=== PATIENT | male | born 1965 | race Caucasian/White ===

== ENCOUNTER 2017-01-27 19:23 | Emergency (ER) | payer BC ==
[2017-01-27 20:05] VITALS: BP 157/109
[2017-01-27] MEDS ORDERED: Ketorolac INJ* 60 MG/2 ML VIAL IM ONE (20:09)
[2017-01-27] MEDS ORDERED: cefTRIAXone VIAL(*) 1,000 MG VIAL IM ONE (20:46)
[2017-01-27] MEDS ORDERED: predniSONE TAB* 20 MG PO ONE (20:46)
[2017-01-27] MEDS ORDERED: Amoxicillin/Clavulanate TAB* 875 MG PO ONE (20:47)
[2017-01-27] MEDS ORDERED: HYDROcodone/ACETAMIN 5-325 MG* 1 TAB PO ONE (20:47)
--- NOTE | 2017-01-27 20:49 | UC ---
Dental HPI - HPI Summary HPI Summary: Patient has a hisotry of dental problems and poor teeth, his too broke off 3 days ago and now has a large abcess on the left upper gum. swollen upper and lower jaw lines, pain in the left ear, runnign down to neck, fever and headache. also complaining of SOB from a COPD exacerbation that he says started today - History of Current Complaint Chief Complaint: UCDentalProblem Stated Complaint: TOOTH PAIN Time Seen by Provider: 01/27/17 20:09 Hx Obtained From: Patient Onset/Duration: Sudden Onset, Lasting Days Severity: Severe Related History: Previous Dental Care on Same Tooth, Swelling - Allergies/Home Medications Allergies/Adverse Reactions: Allergies Allergy/AdvReac Type Severity Reaction Status Date / Time Penicillins Allergy Unknown Unknown Verified 10/20/16 14:40 Reaction Details PMH/Surg Hx/FS Hx/Imm Hx Previously Healthy: Yes Endocrine History Of: Denies: Diabetes, Thyroid Disease Cardiovascular History Of: Reports: Hypertension Denies: Cardiac Disorders, Pacemaker/ICD Respiratory History Of: Reports: COPD Denies: Asthma GI/ History Of: Reports: Ulcer - stomach as child - Surgical History Surgical History: Yes Surgery Procedure, Year, and Place: torn meniscus 97 right knee - Family History Known Family History: Positive: None, Hypertension - Social History Alcohol Use: Rare Substance Use Type: None Smoking Status (MU): Heavy Every Day Tobacco Smoker Type: Cigarettes Amount Used/How Often: 1ppd Length of Time of Smoking/Using Tobacco: 35 Have You Smoked in the Last Year: Yes Household Exposure Type: Cigarettes - Immunization History Most Recent Influenza Vaccination: 06/20/15 Most Recent Pneumonia Vaccination: 07/08/15 Vaccination Up to Date: Yes Review of Systems Constitutional: Fever, Chills, Fatigue Skin: Negative Eyes: Negative ENT: Dental Pain, Sore Throat, Ear Ache, Nasal Discharge Respiratory: Shortness Of Breath, Cough Gastrointestinal: Negative Genitourinary: Negative Motor: Negative Neurovascular: Negative Musculoskeletal: Negative Neurological: Headache Psychological: Negative All Other Systems Reviewed And Are Negative: Yes Physical Exam Triage Information Reviewed: Yes Appearance: Well-Nourished, Ill-Appearing, Pain Distress Vital Signs: Initial Vital Signs Temp 99.1 F 01/27/17 20:00 Pulse 91 01/27/17 20:00 Resp 18 01/27/17 20:00 BP 157/109 01/27/17 20:00 Pulse Ox 97 01/27/17 20:00 Vital Signs Reviewed: Yes Eye Exam: Normal Eyes: Positive: Conjunctiva Clear ENT: Positive: Pharyngeal erythema, Tonsillar swelling Dental: Positive: Percussion Tenderness @ - on upper and lower left jaw, Gross Decay/Caries @ - throught mouth, Dental Fracture @ - upper left remainng molar, Abscess @ - uper left molar, Cervical Lymphadenopathy - left and right Neck: Positive: Supple, Tenderness @ - along right side, Enlarged Nodes @ - bilateral cervical Respiratory Exam: Normal Respiratory: Positive: Chest non-tender, No respiratory distress, No accessory muscle use, Decreased breath sounds, Wheezing, Inspiration Cardiovascular Exam: Normal Cardiovascular: Positive: RRR Abdominal Exam: Normal Abdomen Description: Positive: Nontender, No Organomegaly, Soft Bowel Sounds: Positive: Present Musculoskeletal Exam: Normal Musculoskeletal: Positive: Strength Intact, ROM Intact, No Edema Neurological Exam: Normal Neurological: Positive: Alert, Muscle Tone Normal Psychological Exam: Normal Skin: Positive: Other - erythema on left side of face and ear Dental Complaint Course/Dx - Course Course Of Treatment: hx obtained, exam performed, meds reviewed, toradol given for pain, abx given and prescribed. pain meds prescribed prednisone given for COPD exacerbation. - Differential Dx/Diagnosis Differential Diagnosis/Dx: Dental Abscess, Dental Caries, Fractured Tooth, Pharyngitis Provider Diagnoses: dental abscess. fracture tooth. COPD exacerbation Discharge - Discharge Plan Condition: Stable Disposition: HOME Patient Education Materials: Dental Abscess (ED) Additional Instructions: 1. take the medication as prescribed. 2. Swish with coconut oil 5-6 times a day 3. Follow up with the dentist this coming week. 4. Return for follow up with worsening symptom.
[2017-01-27] MEDS ORDERED: Lidocaine 1% MPF* 2 ML VIAL ONE (21:04)
== END 2017-01-27 21:50 | disposition home or self-care (01) ==
LOC: UCEAST 19:23
DX: K04.7 Periapical abscess without sinus (principal); S02.5XXA Fracture of tooth (traumatic), initial encounter for closed fracture; I10 Essential (primary) hypertension; F17.210 Nicotine dependence, cigarettes, uncomplicated; J44.1 Chronic obstructive pulmonary disease with (acute) exacerbation; Z88.0 Allergy status to penicillin; X58.XXXA Exposure to other specified factors, initial encounter
CPT/HCPCS: 96372; 99213; A9270-GY; G0463; J0696; J1885; J7512

== ENCOUNTER 2017-02-14 14:05 | Emergency (ER) | payer BC ==
[2017-02-14 14:18] VITALS: BP 175/110
--- NOTE | 2017-02-14 18:28 | UC ---
marti Blackman Timothy, scribed for Constance Blair MD on 02/14/17 at 1434 . Shortness of Breath HPI - HPI Summary HPI Summary: Eldon Nance is a 51 yo male presenting to [facility] with cold symptoms 02/12/17 am with 2/10 CASTRO and nausea. He states his Sx have continued with increasing SOB. He is coughing up light green sputum, and states he had a subjective fever. 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 he also states that he was bit by a tick 2 weeks ago on his right leg. He is allergic to penicillin. He has a nebulizer at home for his COPD. His MHx includes COPD, stomach ulcer, EtOH abuse, tobacco use. - History of Current Complaint Chief Complaint: UCRespiratory Stated Complaint: SOB,COPD Time Seen by Provider: 02/14/17 14:19 Hx Obtained From: Patient Onset/Duration: Sudden Onset, Lasting Days, Still Present Timing: Constant Current Severity: Moderate Dyspnea At: Rest Aggrevating Factors: Nothing Alleviating Factors: Nothing Associated Signs & Symptoms: Positive: Cough (Productive) - light green, Wheezing, Fever, Other - CASTRO, nausea - Allergy/Home Medications Allergies/Adverse Reactions: Allergies Allergy/AdvReac Type Severity Reaction Status Date / Time Penicillins Allergy Unknown Unknown Verified 10/20/16 14:40 Reaction Details PMH/Surg Hx/FS Hx/Imm Hx Endocrine History Of: Denies: Diabetes, Thyroid Disease Cardiovascular History Of: Reports: Hypertension Denies: Cardiac Disorders, Pacemaker/ICD Respiratory History Of: Reports: COPD Denies: Asthma GI/ History Of: Reports: Ulcer - stomach as child - Surgical History Surgical History: Yes Surgery Procedure, Year, and Place: torn meniscus 97 right knee - Family History Known Family History: Positive: Hypertension - Social History Alcohol Use: Rare Alcohol Amount: former EtOH abuse Substance Use Type: None Smoking Status (MU): Heavy Every Day Tobacco Smoker Type: Cigarettes Amount Used/How Often: 1ppd Length of Time of Smoking/Using Tobacco: 35 Have You Smoked in the Last Year: Yes Household Exposure Type: Cigarettes - Immunization History Most Recent Influenza Vaccination: 06/20/15 Most Recent Pneumonia Vaccination: 07/08/15 Vaccination Up to Date: Yes Review of Systems Constitutional: Negative, Fever Skin: Other - 3cm erythematous region on anterior aspect of Pt's right thigh Eyes: Negative Respiratory: Shortness Of Breath, Cough Cardiovascular: Negative Gastrointestinal: Other - nausea Genitourinary: Negative Motor: Negative Neurovascular: Negative Musculoskeletal: Negative Neurological: Headache Psychological: Negative All Other Systems Reviewed And Are Negative: Yes Physical Exam Triage Information Reviewed: Yes Appearance: No Pain Distress, Well-Nourished, Ill-Appearing Vital Signs: Initial Vital Signs Temp 97.8 F 02/14/17 14:13 Pulse 96 02/14/17 14:13 Resp 22 02/14/17 14:13 BP 175/110 02/14/17 14:13 Pulse Ox 96 02/14/17 14:13 Vital Signs Reviewed: Yes Eyes: Positive: Conjunctiva Clear ENT: Positive: Hearing grossly normal. Negative: Muffled/hoarse voice Neck: Positive: Supple, Nontender Respiratory: Positive: Lungs clear, No respiratory distress, Decreased breath sounds - throughout, slightly worse on right side., Expiration - expiratory wheezes. Negative: Normal breath sounds Cardiovascular: Positive: RRR, No Murmur, Pulses Normal, Brisk Capillary Refill Musculoskeletal: Positive: Strength Intact, ROM Intact Neurological: Positive: Alert, Muscle Tone Normal Psychological Exam: Normal Skin: Positive: rashes - 3cm erythematous region on the right anterior thigh Shortness of Breath Dx - Course Course Of Treatment: Eldon Nance is a 51 yo male presenting to [facility] with cold symptoms, notably increasing SOB since 02/12/17. He also was bit by a tick 2 weeks ago an has a 3cm red area on his anterior right thigh, and will be tested for lyme disease. Pt is requesting a Rx for his nebulizer so he can do a breathing Tx at home. Of note is his BP of 175/110 upon arrival. After clinical examination, he will be discharged home with COPD exacerbation, bronchitis, and rash with possible lyme disease with appriopriate instructions. Due to his elevated BP, he will also be Dx with HTN in poor control. His pharmacy was called at 1450 to correct an incorrect Rx. - Differential Dx/Diagnosis Differential Diagnosis/HQI/PQRI: Asthma, Bronchitis, COPD Exacerbation, Pneumonia, Other - lyme disease Provider Diagnoses: hypertension in poor control, COPD exacerbation, bronchitis , rash with possible Lyme disease. Discharge - Discharge Plan Condition: Stable Disposition: HOME Prescriptions: DOXYcycline CAP(*) [DOXYcycline 100MG CAP(*)] 100 mg PO BID #42 cap Fluticasone HFA 220 mcg(NF) [Flovent HFA 220 Mcg(NF)] 1 puff INH BID #1 mdi predniSONE TAB* [Deltasone TAB*] 40 mg PO DAILY #10 tab Patient Education Materials: Chronic Hypertension (ED), Lyme Disease (ED), Tick Bite (ED), COPD (Chronic Obstructive Pulmonary Disease) (ED), Acute Bronchitis (ED) Forms: *Work Release Referrals: Rebecca Adame MD [Primary Care Provider] - 2 Days Additional Instructions: Please follow up with Dr. Adame regarding your visit to urgent care today. We have ordered a test for lyme disease, which we will contact you with the results of if positive. Return to urgent care with any new or recurring symptoms. The documentation as recorded by the marti villareal Timothy accurately reflects the service I personally performed and the decisions made by , Constance Blair MD.
== END 2017-02-14 15:17 | disposition home or self-care (01) ==
LOC: UCEAST 14:05
DX: J44.1 Chronic obstructive pulmonary disease with (acute) exacerbation (principal); J20.9 Acute bronchitis, unspecified; J44.0 Chronic obstructive pulmonary disease with (acute) lower respiratory infection; R21 Rash and other nonspecific skin eruption; I10 Essential (primary) hypertension; Z88.0 Allergy status to penicillin; F17.210 Nicotine dependence, cigarettes, uncomplicated
CPT/HCPCS: 86618; 99211; G0463

== ENCOUNTER 2017-06-28 17:24 | Emergency (ER) | payer SELFPAY ==
[2017-06-28 17:52] VITALS: BP 139/91
--- NOTE | 2017-06-28 18:39 | UC ---
Respiratory Complaint HPI - HPI Summary HPI Summary: 51 yo male with cough fever chills and wheezing x 3-4 days hx copd/bronchitis/pneumonia relief with rescue inhaler out of nebs medicine no cp SOB with wheezing at times - History of Current Complaint Chief Complaint: UCRespiratory Stated Complaint: SOB,COUGH Time Seen by Provider: 06/28/17 18:19 Hx Obtained From: Patient Onset/Duration: Gradual Onset, Lasting Days Timing: Constant Severity Initially: Mild Severity Currently: Moderate Pain Intensity: 2 Pain Scale Used: 0-10 Numeric Character: Cough: Productive Aggravating Factors: Exertion, Deep Breaths Alleviating Factors: Bronchodilator Associated Signs And Symptoms: Positive: Dyspnea - at times, Wheezing, Nasal Congestion, Sinus Discomfort Related History: Similar Episode/Dx as: - bronhitis - Allergies/Home Medications Allergies/Adverse Reactions: Allergies Allergy/AdvReac Type Severity Reaction Status Date / Time Penicillins Allergy Unknown Unknown Verified 06/28/17 17:44 Reaction Details PMH/Surg Hx/FS Hx/Imm Hx Previously Healthy: Yes Endocrine History: Dyslipidemia Cardiovascular History: Hypertension Respiratory History: COPD, Asthma, Bronchitis, Pneumonia - Surgical History Surgical History: Yes Surgery Procedure, Year, and Place: torn meniscus 97 right knee - Family History Known Family History: Positive: Hypertension - Social History Alcohol Use: Rare Alcohol Amount: former EtOH abuse Substance Use Type: None Smoking Status (MU): Heavy Every Day Tobacco Smoker Type: Cigarettes Amount Used/How Often: 1ppd Length of Time of Smoking/Using Tobacco: 1 ppd 35+ years Have You Smoked in the Last Year: Yes Household Exposure Type: Cigarettes - Immunization History Most Recent Influenza Vaccination: 06/20/15 Most Recent Pneumonia Vaccination: 07/08/15 Vaccination Up to Date: Yes Review of Systems Constitutional: Fever, Chills, Fatigue Skin: Negative Eyes: Negative ENT: Nasal Discharge, Sinus Congestion, Sinus Pain/Tenderness Respiratory: Shortness Of Breath - at times, Cough Cardiovascular: Negative Gastrointestinal: Negative Genitourinary: Negative Motor: Negative Neurovascular: Negative Musculoskeletal: Negative Neurological: Headache Psychological: Negative Is Patient Immunocompromised?: No All Other Systems Reviewed And Are Negative: Yes Physical Exam Triage Information Reviewed: Yes Appearance: Well-Appearing, No Pain Distress, Well-Nourished Vital Signs: Initial Vital Signs Temp 99.7 F 06/28/17 17:47 Pulse 73 09/07/17 17:47 Resp 16 06/28/17 17:47 BP 139/91 06/28/17 17:47 Pulse Ox 98 06/28/17 17:47 Vital Signs Reviewed: Yes Eyes: Positive: Conjunctiva Clear ENT: Positive: Hearing grossly normal, Nasal congestion, TMs normal. Negative: Nasal drainage, Tonsillar swelling, Tonsillar exudate, Trismus, Muffled/hoarse voice Dental: Negative: Abscess @ Neck: Positive: Supple, Nontender, No Lymphadenopathy Respiratory: Positive: No respiratory distress, No accessory muscle use, Wheezing Cardiovascular: Positive: RRR, No Murmur Musculoskeletal: Positive: ROM Intact, No Edema Neurological: Positive: Alert Psychological Exam: Normal Skin Exam: Normal UC Diagnostic Evaluation - Laboratory O2 Sat by Pulse Oximetry: 98 - normal/not hypoxic Respiratory Course/Dx - Course Course Of Treatment: pt refused CXR and neb treatment - Differential Dx/Diagnosis Provider Diagnoses: acute bronchitis with bronchospasm Discharge - Discharge Plan Condition: Stable Disposition: HOME Prescriptions: Albuterol 2.5MG/3ML (0.083%)* [Ventolin 2.5 MG/3 ML NEB.ESHA*] 2.5 mg INH QID PRN #1 neb.esha PRN Reason: Wheezing Azithromycin TAB* [Zithromax TAB (Z-KOSTAS) 250 mg #6 tabs] 250 mg PO DAILY #6 tab Prednisone [Deltasone] 40 mg PO DAILY #10 tab Patient Education Materials: Acute Bronchitis (ED) Forms: *Work Release Referrals: Rebecca Adame MD [Primary Care Provider] - 4 Days (if not better)
== END 2017-06-28 18:30 | disposition home or self-care (01) ==
LOC: UCEAST 17:24
DX: J44.9 Chronic obstructive pulmonary disease, unspecified (principal); J20.9 Acute bronchitis, unspecified; Z88.0 Allergy status to penicillin; E78.5 Hyperlipidemia, unspecified; I10 Essential (primary) hypertension; F17.210 Nicotine dependence, cigarettes, uncomplicated
CPT/HCPCS: 99211; G0463

== ENCOUNTER 2017-07-04 16:13 | Emergency (ER) | payer BC ==
--- NOTE | 2017-07-04 16:31 | UC ---
Throat Pain/Nasal Vinay HPI - HPI Summary HPI Summary: 51 YEAR OLD MALE PRESENTS FOR A DOCTORS NOTE AFTER BEING TREATED FOR COPD A FEW DAYS AGO. - History of Current Complaint Chief Complaint: UCRespiratory Stated Complaint: URI Time Seen by Provider: 07/04/17 16:31 Hx Obtained From: Patient Onset/Duration: Sudden Onset, Lasting Days Severity: Mild Pain Scale Used: 0-10 Numeric - 1 Cough: Nonproductive Associated Signs & Symptoms: Positive: Negative - Allergies/Home Medications Allergies/Adverse Reactions: Allergies Allergy/AdvReac Type Severity Reaction Status Date / Time Penicillins Allergy Unknown Unknown Verified 07/04/17 16:23 Reaction Details PMH/Surg Hx/FS Hx/Imm Hx Previously Healthy: Yes - Surgical History Surgical History: Yes Surgery Procedure, Year, and Place: torn meniscus 97 right knee - Family History Known Family History: Positive: None, Hypertension - Social History Alcohol Use: Rare Alcohol Amount: former EtOH abuse Substance Use Type: None Smoking Status (MU): Heavy Every Day Tobacco Smoker Type: Cigarettes Amount Used/How Often: 1ppd Length of Time of Smoking/Using Tobacco: 1 ppd 35+ years Have You Smoked in the Last Year: Yes Household Exposure Type: Cigarettes - Immunization History Most Recent Influenza Vaccination: 06/20/15 Most Recent Pneumonia Vaccination: 07/08/15 Vaccination Up to Date: Yes Review of Systems Constitutional: Negative Skin: Negative Eyes: Negative ENT: Negative Respiratory: Cough Cardiovascular: Negative Gastrointestinal: Negative Genitourinary: Negative Motor: Negative Neurovascular: Negative Musculoskeletal: Negative Neurological: Negative Psychological: Negative All Other Systems Reviewed And Are Negative: Yes Physical Exam Triage Information Reviewed: Yes Vital Signs: Initial Vital Signs Temp 36.8 C 07/04/17 16:23 Pulse 89 07/04/17 16:23 Resp 16 07/04/17 16:23 Pulse Ox 97 07/04/17 16:23 Vital Signs Reviewed: Yes Eye Exam: Normal ENT Exam: Normal Dental Exam: Normal Neck exam: Normal Neck: Positive: 1 Respiratory Exam: Normal Respiratory: Positive: Rhonchi, Wheezing Cardiovascular Exam: Normal Abdominal Exam: Normal Musculoskeletal Exam: Normal Neurological Exam: Normal Psychological Exam: Normal Skin Exam: Normal Throat Pain/Nasal Course/Dx - Differential Dx/Diagnosis Provider Diagnoses: COUGH Discharge - Discharge Plan Condition: Stable Disposition: HOME Patient Education Materials: Cold Symptoms (ED), Acute Cough (ED) Forms: *Work Release Referrals: Rebecca Adame MD [Primary Care Provider] -
== END 2017-07-04 16:40 | disposition home or self-care (01) ==
LOC: UCEAST 16:13
DX: R05 Cough (principal); J44.9 Chronic obstructive pulmonary disease, unspecified; Z88.0 Allergy status to penicillin; F17.210 Nicotine dependence, cigarettes, uncomplicated
CPT/HCPCS: 99211; G0463

== ENCOUNTER 2017-07-10 16:13 | Emergency (ER) | payer BC ==
--- NOTE | 2017-07-10 16:24 | UC ---
Respiratory Complaint HPI - HPI Summary HPI Summary: 51 YEAR OLD MALE PRESENTS WITH COUGH. - History of Current Complaint Stated Complaint: COUGH Time Seen by Provider: 07/10/17 16:24 Hx Obtained From: Patient Onset/Duration: Sudden Onset Severity Initially: Moderate Severity Currently: Moderate Pain Scale Used: 0-10 Numeric - 5 Character: Cough: Nonproductive Associated Signs And Symptoms: Positive: Negative - Allergies/Home Medications Allergies/Adverse Reactions: Allergies Allergy/AdvReac Type Severity Reaction Status Date / Time Penicillins Allergy Unknown Unknown Verified 07/04/17 16:23 Reaction Details PMH/Surg Hx/FS Hx/Imm Hx Previously Healthy: Yes - Surgical History Surgical History: Yes Surgery Procedure, Year, and Place: torn meniscus 97 right knee - Family History Known Family History: Positive: None, Hypertension - Social History Alcohol Use: Rare Alcohol Amount: former EtOH abuse Substance Use Type: None Smoking Status (MU): Heavy Every Day Tobacco Smoker Type: Cigarettes Amount Used/How Often: 1ppd Length of Time of Smoking/Using Tobacco: 1 ppd 35+ years Have You Smoked in the Last Year: Yes Household Exposure Type: Cigarettes - Immunization History Most Recent Influenza Vaccination: 06/20/15 Most Recent Pneumonia Vaccination: 07/08/15 Vaccination Up to Date: Yes Review of Systems Constitutional: Negative Skin: Negative Eyes: Negative ENT: Negative Respiratory: Cough Cardiovascular: Negative Gastrointestinal: Negative Genitourinary: Negative Motor: Negative Neurovascular: Negative Musculoskeletal: Negative Neurological: Negative Psychological: Negative All Other Systems Reviewed And Are Negative: Yes Physical Exam Triage Information Reviewed: Yes Vital Signs Reviewed: Yes Eye Exam: Normal ENT Exam: Normal Dental Exam: Normal Neck exam: Normal Neck: Positive: 1 Respiratory: Positive: Respiratory distress, Wheezing Cardiovascular Exam: Normal Abdominal Exam: Normal Musculoskeletal Exam: Normal Neurological Exam: Normal Psychological Exam: Normal Skin Exam: Normal Respiratory Course/Dx - Differential Dx/Diagnosis Provider Diagnoses: COUGH. POST NASAL DRIP Discharge - Discharge Plan Condition: Stable Disposition: HOME Prescriptions: Albuterol HFA INHALER* [Ventolin HFA Inhaler*] 1 puff INH Q6H PRN #1 box PRN Reason: Wheezing Albuterol/Ipratropium RESP(NF) [Combivent Respimat(NF)] 1 aer IN QID #1 box Amoxicillin/Clavulanate TAB* [Augmentin TAB 875*] 875 mg PO BID #20 tab predniSONE TAB* [Deltasone TAB*] 40 mg PO DAILY #10 tab Patient Education Materials: Asthma (ED), Acute Bronchitis (ED) Forms: *Work Release Referrals: Rebecca Adame MD [Primary Care Provider] -
[2017-07-10 16:29] VITALS: BP 122/83
== END 2017-07-10 16:47 | disposition home or self-care (01) ==
LOC: UCEAST 16:13
DX: R05 Cough (principal); F17.210 Nicotine dependence, cigarettes, uncomplicated; Z88.0 Allergy status to penicillin; R09.82 Postnasal drip
CPT/HCPCS: 99212; G0463

== ENCOUNTER 2017-09-27 15:16 | Emergency (ER) | payer BC ==
[2017-09-27 15:30] VITALS: BP 153/95
[2017-09-27] MEDS ORDERED: Albuterol 2.5 MG/3 ML NEB.SOL* (0.083%) INH ONE (15:39)
[2017-09-27] MEDS ORDERED: Ipratropium 0.5MG/2.5ML NEB* 0.5 MG/2.5 ML NEB.SOLN INH ONE (15:39)
[2017-09-27] MEDS ORDERED: predniSONE TAB* 20 MG PO ONE (15:39)
--- NOTE | 2017-09-27 15:39 | UC ---
Respiratory Complaint HPI - HPI Summary HPI Summary: 51 yo smoker with COPD presents with exacerbation of COPD which started yesterday CASTRO wheezing myalgias chills ?fever - History of Current Complaint Chief Complaint: UCRespiratory Stated Complaint: SOB Time Seen by Provider: 09/27/17 15:29 Hx Obtained From: Patient Onset/Duration: Gradual Onset, Lasting Hours Timing: Constant Severity Initially: Moderate Severity Currently: Moderate Pain Intensity: 4 Pain Scale Used: 0-10 Numeric Character: Cough: Nonproductive Aggravating Factors: Exertion, Deep Breaths, Recumbent Position Alleviating Factors: Bronchodilator Associated Signs And Symptoms: Positive: Chills, Wheezing, Nasal Congestion - Allergies/Home Medications Allergies/Adverse Reactions: Allergies Allergy/AdvReac Type Severity Reaction Status Date / Time Penicillins Allergy Unknown Unknown Verified 09/27/17 15:30 Reaction Details Home Medications: Home Medications Ibuprofen TAB* [Advil TAB*] 800 mg PO ONCE PRN 09/27/17 [History Confirmed 09/27] PMH/Surg Hx/FS Hx/Imm Hx Cardiovascular History: Hypertension Respiratory History: COPD, Bronchitis, Pneumonia, Other Other Respiratory History: [place] - Surgical History Surgical History: Yes Surgery Procedure, Year, and Place: torn meniscus 97 right knee - Family History Known Family History: Positive: None, Hypertension - Social History Alcohol Use: Rare Alcohol Amount: former EtOH abuse Substance Use Type: None Smoking Status (MU): Current Every Day Smoker Type: Cigarettes Amount Used/How Often: 1ppd Length of Time of Smoking/Using Tobacco: 1 ppd 35+ years Have You Smoked in the Last Year: Yes Household Exposure Type: Cigarettes - Immunization History Most Recent Influenza Vaccination: 06/20/15 Most Recent Pneumonia Vaccination: 07/08/15 Vaccination Up to Date: Yes Review of Systems Constitutional: Chills, Fatigue ENT: Nasal Discharge Respiratory: Cough Musculoskeletal: Myalgia Neurological: Headache Is Patient Immunocompromised?: No All Other Systems Reviewed And Are Negative: Yes Physical Exam Triage Information Reviewed: Yes Appearance: Well-Appearing, No Pain Distress, Well-Nourished Vital Signs: Initial Vital Signs Temp 98.1 F 09/27/17 15:24 Pulse 70 09/27/17 15:24 Resp 20 09/27/17 15:24 BP 153/95 09/27/17 15:24 Pulse Ox 95 09/27/17 15:24 Eyes: Positive: Conjunctiva Clear ENT: Positive: Hearing grossly normal, Nasal congestion, TMs normal, Uvula midline. Negative: Nasal drainage, Tonsillar swelling, Tonsillar exudate, Trismus, Muffled voice, Hoarse voice, Dental tenderness, Sinus tenderness Neck exam: Normal Neck: Positive: Supple, Nontender Respiratory: Positive: No respiratory distress, No accessory muscle use, Wheezing Cardiovascular: Positive: RRR, No Murmur Musculoskeletal: Positive: ROM Intact, No Edema Neurological: Positive: Alert Psychological Exam: Normal Skin Exam: Normal UC Diagnostic Evaluation - Laboratory O2 Sat by Pulse Oximetry: 95 - normal/not hypoxic Diagnostic Studies Comment: rapid flu A and B both negative Re-Evaluation - Re-Evaluation First Eval Re-Evaluation Time: 16:30 Change: Improved Comment: LUNGS CLEAR Respiratory Course/Dx - Differential Dx/Diagnosis Provider Diagnoses: ACUTE EXCARBATION OF COPD. ACUTE BRONCHITIS. TOBACCO ABUSE Discharge - Discharge Plan Condition: Stable Disposition: HOME Prescriptions: Albuterol 2.5MG/3ML (0.083%)* [Ventolin 2.5 MG/3 ML NEB.ESHA*] 2.5 mg INH QID PRN #1 neb.esha PRN Reason: Wheezing Azithromycin TAB* [Zithromax TAB*] 250 mg PO DAILY #6 tab Prednisone [Deltasone] 40 mg PO DAILY #8 tab Patient Education Materials: Acute Bronchitis (ED) Forms: *Work Release Referrals: Rebecca Adame MD [Primary Care Provider] - 1 Week Additional Instructions: RETURN FOR NEW OR WORSENING SYMPTOMS\ YOU NEED TO STOP SMOKING
== END 2017-09-27 16:43 | disposition home or self-care (01) ==
LOC: UCEAST 15:16
DX: J44.1 Chronic obstructive pulmonary disease with (acute) exacerbation (principal); J20.9 Acute bronchitis, unspecified; J44.0 Chronic obstructive pulmonary disease with (acute) lower respiratory infection; I10 Essential (primary) hypertension; Z88.0 Allergy status to penicillin; F17.210 Nicotine dependence, cigarettes, uncomplicated
CPT/HCPCS: 87502; 99213; G0463; J7512; J7644

== ENCOUNTER 2017-10-25 12:38 | Emergency (ER) | payer BC ==
[2017-10-25] MEDS ORDERED: methylPREDNISolone 125 MG* 2 ML VIAL IV ONE (12:54)
[2017-10-25] MEDS ORDERED: Albuterol/Ipratropium NEB.SOL* Albuterol 2.5 MG/Ipratropium 0.5 MG 3 ML INH ONE (12:55)
[2017-10-25] MEDS ORDERED: Levofloxacin TAB* 250 MG PO ONE (12:56)
--- NOTE | 2017-10-25 13:25 | UC ---
Respiratory Complaint HPI - HPI Summary HPI Summary: 52 yo WM with extensive h/o smoking p/w acute sob and chest tightness. States his nebulizer machine broke at home could not get his tx. - History of Current Complaint Chief Complaint: UCChestPain Stated Complaint: SHORTNESS OF BREATH, TIGHT,HEADACHE Time Seen by Provider: 10/25/17 12:52 Onset/Duration: Sudden Onset Severity Initially: Moderate Severity Currently: Moderate Character: Cough: Nonproductive Aggravating Factors: Deep Breaths Associated Signs And Symptoms: Positive: Negative - Allergies/Home Medications Allergies/Adverse Reactions: Allergies Allergy/AdvReac Type Severity Reaction Status Date / Time Penicillins Allergy Unknown Unknown Verified 10/25/17 12:56 Reaction Details PMH/Surg Hx/FS Hx/Imm Hx Respiratory History: COPD - Surgical History Surgical History: Yes Surgery Procedure, Year, and Place: torn meniscus 97 right knee - Family History Known Family History: Positive: None, Hypertension - Social History Alcohol Use: Rare Alcohol Amount: former EtOH abuse Substance Use Type: None Smoking Status (MU): Current Every Day Smoker Type: Cigarettes Amount Used/How Often: 1ppd Length of Time of Smoking/Using Tobacco: 1 ppd 35+ years Have You Smoked in the Last Year: Yes Household Exposure Type: Cigarettes - Immunization History Most Recent Influenza Vaccination: none Most Recent Pneumonia Vaccination: 07/08/15 Vaccination Up to Date: Yes Review of Systems Constitutional: Negative Skin: Negative Eyes: Negative ENT: Negative Respiratory: Shortness Of Breath, Cough Cardiovascular: Negative Gastrointestinal: Negative Genitourinary: Negative Motor: Negative Neurovascular: Negative Musculoskeletal: Negative Neurological: Negative Psychological: Negative All Other Systems Reviewed And Are Negative: Yes Physical Exam Triage Information Reviewed: Yes Vital Signs: Initial Vital Signs Temp 37.2 C 10/25/17 12:47 Pulse 82 10/25/17 12:47 Resp 20 10/25/17 12:47 BP 184/115 10/25/17 12:47 Pulse Ox 97 10/25/17 12:47 Eye Exam: Normal ENT Exam: Normal Dental Exam: Normal Neck exam: Normal Neck: Positive: 1 Respiratory Exam: Normal Respiratory: Positive: Wheezing - expiratory>inspiratory Cardiovascular Exam: Normal Abdominal Exam: Normal Musculoskeletal Exam: Normal Neurological Exam: Normal Psychological Exam: Normal Skin Exam: Normal UC Diagnostic Evaluation - Laboratory O2 Sat by Pulse Oximetry: 97 Respiratory Course/Dx - Course Course Of Treatment: CXR mild patchiness in RLL in a COPD pt. WIll tx with Levaquin and Prednisone. Reordered nebulizer machine - Differential Dx/Diagnosis Provider Diagnoses: COPD exacerbation and PNA Discharge - Discharge Plan Condition: Stable Disposition: HOME Prescriptions: Levofloxacin TAB* [Levaquin TAB*] 500 mg PO DAILY 7 Days #7 tab Nebulizers [Nebulizer] 1 mis XX DAILY 30 Days #1 mis predniSONE TAB* [Deltasone TAB*] 30 mg PO DAILY 5 Days #5 tab Respiratory Therapy Supplies [Nebulizer/Adult Mask] 1 kit XX DAILY 30 Days #1 kit Patient Education Materials: COPD (Chronic Obstructive Pulmonary Disease) (ED) , Pneumonia (ED) Referrals: No Primary Care Phys,NOPCP [Primary Care Provider] - Additional Instructions: as tolerated
--- NOTE | 2017-10-25 13:40 | RAD ---
HISTORY: Shortness of breath COMPARISONS: September 11, 2015 VIEWS: 4: Frontal dual-energy and lateral views of the chest. FINDINGS: CARDIOMEDIASTINAL SILHOUETTE: The cardiomediastinal silhouette is normal. MIRTHA: The mirtha are normal. PLEURA: The costophrenic angles are sharp. No pleural abnormalities are noted. LUNG PARENCHYMA: The lungs are clear. ABDOMEN: The upper abdomen is clear. There is no subphrenic gas. BONES AND SOFT TISSUES: Mild degenerative changes are noted OTHER: None. IMPRESSION: NO ACTIVE CARDIOPULMONARY DISEASE.
[2017-10-25 14:26] VITALS: BP 153/106
== END 2017-10-25 15:25 | disposition home or self-care (01) ==
LOC: UCEAST 12:38
DX: J44.1 Chronic obstructive pulmonary disease with (acute) exacerbation (principal); J18.9 Pneumonia, unspecified organism; F17.210 Nicotine dependence, cigarettes, uncomplicated; Z88.0 Allergy status to penicillin
CPT/HCPCS: 71046; 93005; 96374; 99213; A9270-GY; G0463; J2930

== ENCOUNTER 2017-12-09 12:02 | Emergency (ER) | payer BC ==
[2017-12-09 12:53] VITALS: BP 153/104
--- NOTE | 2017-12-09 13:20 | UC ---
Respiratory Complaint HPI - HPI Summary HPI Summary: Pt presents with body aches, fatigue, and cough for the last 3 days. He is feeling the best today since his symptoms started, but still has a persistent cough. He tells me that he has a history of COPD and is on many inhalers, of which he has been out of for the last 5 days. He is asking for refill on all of his inhalers and her neurontin. Not taking anything OTC for his symptoms. He missed work and sunday and is asking for a note to return to work tomorrow. Denies fever, chills, SOB, chest pain, abdominal pain, n/v/d/c. He is still smoking - History of Current Complaint Chief Complaint: UCRespiratory Stated Complaint: COUGH Time Seen by Provider: 12/09/17 13:08 Hx Obtained From: Patient Onset/Duration: Gradual Onset Severity Initially: Mild Severity Currently: Mild Pain Intensity: 3 Pain Scale Used: 0-10 Numeric Character: Cough: Nonproductive - Allergies/Home Medications Allergies/Adverse Reactions: Allergies Allergy/AdvReac Type Severity Reaction Status Date / Time MS Penicillins [Penicillins] Allergy Unknown Unknown Verified 12/09/17 12:54 Reaction Details Penicillins Allergy Unknown Verified 12/09/17 12:54 Reaction Details PMH/Surg Hx/FS Hx/Imm Hx Endocrine History: Dyslipidemia Cardiovascular History: Hypertension Respiratory History: COPD - Surgical History Surgical History: Yes Surgery Procedure, Year, and Place: torn meniscus 97 right knee - Family History Known Family History: Positive: None, Hypertension - Social History Occupation: Employed Full-time Alcohol Use: Rare Alcohol Amount: former EtOH abuse Substance Use Type: None Smoking Status (MU): Heavy Every Day Tobacco Smoker Type: Cigarettes Amount Used/How Often: 1ppd Length of Time of Smoking/Using Tobacco: 1 ppd 35+ years Have You Smoked in the Last Year: Yes Household Exposure Type: Cigarettes - Immunization History Most Recent Influenza Vaccination: none Most Recent Pneumonia Vaccination: 07/08/15 Vaccination Up to Date: Yes Review of Systems Constitutional: Fatigue, Other - Body aches Skin: Negative Eyes: Negative ENT: Negative Respiratory: Cough Cardiovascular: Negative Gastrointestinal: Negative Genitourinary: Negative Musculoskeletal: Negative Neurological: Negative Psychological: Negative All Other Systems Reviewed And Are Negative: Yes Physical Exam Triage Information Reviewed: Yes Appearance: Well-Appearing, No Pain Distress, Well-Nourished Vital Signs: Initial Vital Signs Temp 98.6 F 12/09/17 12:49 Pulse 72 12/09/17 12:49 Resp 18 12/09/17 12:49 BP 153/104 12/09/17 12:49 Pulse Ox 97 12/09/17 12:49 Vital Signs Reviewed: Yes Eyes: Positive: Conjunctiva Clear. Negative: Conjunctiva Inflamed, Discharge ENT: Positive: Hearing grossly normal, Pharynx normal, TMs normal, Uvula midline. Negative: Pharyngeal erythema, Nasal congestion, Nasal drainage, TM bulging, TM dull, TM red, Tonsillar swelling, Tonsillar exudate, Hoarse voice, Sinus tenderness Neck: Positive: Supple, Nontender, No Lymphadenopathy Respiratory: Positive: No respiratory distress, No accessory muscle use, Decreased breath sounds, Wheezing - Moderate throughout. Negative: Crackles Cardiovascular: Positive: RRR, No Murmur, Pulses Normal Neurological: Positive: Fatigued Psychological: Positive: Age Appropriate Behavior Skin: Negative: rashes UC Diagnostic Evaluation - Laboratory O2 Sat by Pulse Oximetry: 97 Respiratory Course/Dx - Course Course Of Treatment: POC flu negative. CXR: IMPRESSION: NO EVIDENCE FOR ACTIVE CARDIOPULMONARY DISEASE. Refill of his usual inhalers and will start prednisone burst for 5 days. - Differential Dx/Diagnosis Provider Diagnoses: COPD exacerbation Discharge - Discharge Plan Condition: Stable Disposition: HOME Prescriptions: Albuterol 2.5MG/3ML (0.083%)* [Ventolin 2.5 MG/3 ML NEB.ESHA*] 2.5 mg INH QID PRN #1 neb.esha PRN Reason: Wheezing Albuterol HFA INHALER* [Ventolin HFA Inhaler*] 1 puff INH Q6H PRN #1 box PRN Reason: Wheezing Albuterol/Ipratropium RESP(NF) [Combivent Respimat (NF)] 1 aer IN QID #1 box Fluticasone HFA 220 mcg(NF) [Flovent Hfa 220 Mcg(NF)] 1 puff INH BID #1 mdi Fluticasone-Salmeterol 500-50* [Advair Diskus 500-50*] 1 puff INH BID #1 diskus predniSONE TAB* [Deltasone TAB*] 50 mg PO DAILY #5 tab Patient Education Materials: COPD (Chronic Obstructive Pulmonary Disease) (ED) Forms: *Gen. Provider Communication Referrals: No Primary Care Phys,NOPCP [Primary Care Provider] - Additional Instructions: If you develop a fever, shortness of breath, chest pain, new or worsening symptoms - please call your PCP or go to the ED. Your blood pressure was high at todays visit. Please see your primary provider within 4 weeks for recheck and re-evaluation.
--- NOTE | 2017-12-09 13:40 | RAD ---
INDICATION: Cough and COPD. COMPARISON: Correlation is made with prior studies from July 11, 2011 and October 25, 2017. TECHNIQUE: Dual-energy PA and lateral views of the chest were obtained. FINDINGS: The heart is within normal limits in size. Mediastinal and hilar contours appear within normal limits. The lungs are slightly hyperinflated and clear. No pleural effusion is seen. IMPRESSION: NO EVIDENCE FOR ACTIVE CARDIOPULMONARY DISEASE.
== END 2017-12-09 13:54 | disposition home or self-care (01) ==
LOC: UCEAST 12:02
DX: J44.1 Chronic obstructive pulmonary disease with (acute) exacerbation (principal); F17.210 Nicotine dependence, cigarettes, uncomplicated; E78.5 Hyperlipidemia, unspecified; I10 Essential (primary) hypertension; Z88.0 Allergy status to penicillin
CPT/HCPCS: 71046; 87502; 99212; G0463

== ENCOUNTER 2018-03-11 11:52 | Emergency (ER) | payer BC ==
[2018-03-11 12:10] VITALS: BP 154/101
--- NOTE | 2018-03-11 12:15 | UC ---
Respiratory Complaint HPI - HPI Summary HPI Summary: 52 yo male presents with cough and chest congestion for 5 days. He has a history of COPD and is on multiple inhalers and uses a nebulizer. Over the weekend he says he had a fever of 101F. Has been using his inhalers more often. Productive cough with green sputum. Has not been taking anything OTC. Denies chest pain. - History of Current Complaint Chief Complaint: UCRespiratory Stated Complaint: COUGH,CONGESTED Time Seen by Provider: 03/11/18 12:14 Hx Obtained From: Patient Severity Currently: None Pain Intensity: 0 Character: Cough: Productive Alleviating Factors: Bronchodilator - Allergies/Home Medications Allergies/Adverse Reactions: Allergies Allergy/AdvReac Type Severity Reaction Status Date / Time Penicillins Allergy Unknown Verified 03/11/18 12:10 Reaction Details PMH/Surg Hx/FS Hx/Imm Hx Cardiovascular History: Hypertension Respiratory History: COPD GI/ History: Gastroesophageal Reflux - Surgical History Surgical History: Yes Surgery Procedure, Year, and Place: torn meniscus 97 right knee - Family History Known Family History: Positive: None, Hypertension - Social History Occupation: Employed Full-time Lives: With Family Alcohol Use: Rare Alcohol Amount: former EtOH abuse Substance Use Type: None Smoking Status (MU): Heavy Every Day Tobacco Smoker Type: Cigarettes Amount Used/How Often: 1ppd Length of Time of Smoking/Using Tobacco: 1 ppd 35+ years Have You Smoked in the Last Year: Yes Household Exposure Type: Cigarettes - Immunization History Most Recent Influenza Vaccination: none Most Recent Pneumonia Vaccination: 07/08/15 Vaccination Up to Date: Yes Review of Systems Constitutional: Fever Skin: Negative Eyes: Negative ENT: Negative Respiratory: Shortness Of Breath, Cough Cardiovascular: Negative Gastrointestinal: Negative Neurovascular: Negative Neurological: Negative Psychological: Negative All Other Systems Reviewed And Are Negative: Yes Physical Exam - Summary Physical Exam Summary: GENERAL: NAD. WDWN. No pain distress. SKIN: No rashes, sores, lesions, or open wounds. HEENT: Head: AT/NC Eyes: Conjunctiva clear without inflammation or discharge. Ears: Hearing grossly normal. TMs intact, no bulging, erythema, or edema. Nose: Nasal mucosa pink and moist. NTTP maxillary and frontal sinus. Throat: Posterior oropharynx without exudates, erythema, or tonsillar enlargement. Uvula midline. NECK: Supple. Nontender. No lymphadenopathy. CHEST: Moderate wheezing throughout. No r/r. No accessory muscle use. Breathing comfortably and in no distress. CV: RRR. Without m/r/g. Pulses intact. Brisk cap refill. NEURO: Alert. CN II-XII grossly intact. PSYCH: Age appropriate behavior. Triage Information Reviewed: Yes Vital Signs: Initial Vital Signs Temp 99.6 F 03/11/18 12:05 Pulse 91 03/11/18 12:05 Resp 18 03/11/18 12:05 BP 154/101 03/11/18 12:05 Pulse Ox 96 03/11/18 12:05 Diagnostic Evaluation - Laboratory O2 Sat by Pulse Oximetry: 96 Respiratory Course/Dx - Course Course Of Treatment: Given his history and diffuse moderate wheezing I wanted to order a CXR, but pt declined as he cannot afford that at this time. He is also asking for refills on his combivent and advair. Will rx for zpak and prednisone. - Differential Dx/Diagnosis Provider Diagnoses: COPD exacerbation Discharge - Sign-Out/Discharge Documenting (check all that apply): Discharge/Admit/Transfer - Discharge Plan Condition: Stable Disposition: HOME Prescriptions: Albuterol/Ipratropium RESP(NF) [Combivent Respimat (NF)] 1 aer IN QID #1 box Azithromycin TAB* [Zithromax TAB (Z-KOSTAS) 250 mg #6 tabs] 2 tab PO .TODAY, THEN 1 DAILY #1 kostas Fluticasone-Salmeterol 500-50* [Advair Diskus 500-50*] 1 puff INH BID #1 diskus predniSONE TAB* [Deltasone TAB*] 50 mg PO DAILY #5 tab Patient Education Materials: COPD (Chronic Obstructive Pulmonary Disease) (ED) Forms: *Work Release Referrals: No Primary Care Phys,NOPCP [Primary Care Provider] - Additional Instructions: If you develop a fever, shortness of breath, chest pain, new or worsening symptoms - please call your PCP or go to the ED. Your blood pressure was high at todays visit. Please see your primary provider within 4 weeks for recheck and re-evaluation. - Billing Disposition and Condition Condition: STABLE Disposition: HOME
== END 2018-03-11 12:32 | disposition home or self-care (01) ==
LOC: UCEAST 11:52
DX: J44.1 Chronic obstructive pulmonary disease with (acute) exacerbation (principal); I10 Essential (primary) hypertension; F17.210 Nicotine dependence, cigarettes, uncomplicated; Z88.0 Allergy status to penicillin
CPT/HCPCS: 99212; G0463

== ENCOUNTER 2018-04-01 08:17 | Emergency (ER) | payer BC ==
[2018-04-01 08:32] VITALS: BP 195/110
--- NOTE | 2018-04-01 08:54 | UC ---
Skin Complaint HPI - HPI Summary HPI Summary: 52 yo male with tick bite noted this AM he was working on a fence yesterday He is not sure if this is when he picked it up His mother removed it this AM it is sore now - History of Current Complaint Chief Complaint: UCSkin Time Seen by Provider: 04/01/18 08:35 Stated Complaint: TICK BITE Hx Obtained From: Patient Onset/Duration: Sudden Onset, Gradual Onset Onset Severity: Mild Current Severity: Mild Pain Intensity: 1 Pain Scale Used: 0-10 Numeric Location: Discrete Character: Swelling Aggravating Factor(s): Touch Associated Signs & Symptoms: Positive: Tenderness Related History: Insect Bite/Sting - Allergy/Home Medications Allergies/Adverse Reactions: Allergies Allergy/AdvReac Type Severity Reaction Status Date / Time Penicillins Allergy Unknown Verified 04/01/18 08:33 Reaction Details Review of Systems Constitutional: Negative Skin: Negative Eyes: Negative ENT: Negative Respiratory: Negative Cardiovascular: Negative Gastrointestinal: Negative Genitourinary: Negative Motor: Negative Neurovascular: Negative Musculoskeletal: Negative Neurological: Negative Psychological: Negative Is Patient Immunocompromised?: No All Other Systems Reviewed And Are Negative: Yes PMH/Surg Hx/FS Hx/Imm Hx Previously Healthy: Yes Cardiovascular History: Hypertension Respiratory History: Asthma - Surgical History Surgical History: Yes Surgery Procedure, Year, and Place: torn meniscus 97 right knee - Family History Known Family History: Positive: Hypertension - Social History Alcohol Use: Rare Alcohol Amount: former EtOH abuse Substance Use Type: None Smoking Status (MU): Heavy Every Day Tobacco Smoker Type: Cigarettes Amount Used/How Often: 1ppd Length of Time of Smoking/Using Tobacco: 1 ppd 35+ years Have You Smoked in the Last Year: Yes Household Exposure Type: Cigarettes - Immunization History Most Recent Influenza Vaccination: none Most Recent Pneumonia Vaccination: 07/08/15 Vaccination Up to Date: Yes Physical Exam Triage Information Reviewed: Yes Appearance: Well-Appearing, No Pain Distress, Well-Nourished Vital Signs: Initial Vital Signs Temp 98 F 04/01/18 08:30 Pulse 90 04/01/18 08:30 Resp 18 04/01/18 08:30 BP 195/110 04/01/18 08:30 Pulse Ox 98 04/01/18 08:30 Vital Signs Reviewed: Yes Eyes: Positive: Conjunctiva Clear ENT: Negative: Nasal congestion, Nasal drainage, Trismus, Muffled voice Neck: Positive: Supple, Nontender, No Lymphadenopathy Respiratory: Positive: Lungs clear, Normal breath sounds, No respiratory distress Cardiovascular: Positive: RRR, No Murmur Musculoskeletal: Positive: ROM Intact, No Edema Neurological: Positive: Alert Psychological Exam: Normal Skin Exam: Other - red and quarter sized area of swelling at tick bite site Course/Dx - Diagnoses Provider Diagnoses: 1. tick bite. 2. lyme disease prophylaxis Discharge - Sign-Out/Discharge Documenting (check all that apply): Discharge/Admit/Transfer - Discharge Plan Condition: Stable Disposition: HOME Prescriptions: DOXYcycline CAP(*) [DOXYcycline 100MG CAP(*)] 200 mg PO ONCE #2 cap Triamcinolone 0.5% CREAM(NF) [Triamcinolone 0.5% CREAM*] 1 applic TOPICAL QID # 60 tube Patient Education Materials: Tick Bite (ED) Referrals: Rebecca Adame MD [Primary Care Provider] - 2 Weeks (BP recheck in 2-8 weeks) Additional Instructions: you have a local reaction to the tick bite - Billing Disposition and Condition Condition: STABLE Disposition: Home
== END 2018-04-01 08:50 | disposition home or self-care (01) ==
LOC: UCEAST 08:17
DX: S20.461A Insect bite (nonvenomous) of right back wall of thorax, initial encounter (principal); W57.XXXA Bitten or stung by nonvenomous insect and other nonvenomous arthropods, initial encounter; Y93.89 Activity, other specified; Y92.9 Unspecified place or not applicable; I10 Essential (primary) hypertension; J45.909 Unspecified asthma, uncomplicated; Z88.0 Allergy status to penicillin; F17.210 Nicotine dependence, cigarettes, uncomplicated; Z82.49 Family history of ischemic heart disease and other diseases of the circulatory system
CPT/HCPCS: 99212; G0463

== ENCOUNTER 2018-06-26 17:39 | Emergency (ER) | payer BC ==
[2018-06-26 17:51] VITALS: BP 164/105
[2018-06-26] MEDS ORDERED: predniSONE TAB* 20 MG PO ONE (18:11)
[2018-06-26] MEDS ORDERED: Albuterol/Ipratropium NEB.SOL* Albuterol 2.5 MG/Ipratropium 0.5 MG 3 ML INH ONE (18:11)
--- NOTE | 2018-06-26 18:30 | UC ---
Shortness of Breath HPI - HPI Summary HPI Summary: A 52 y/o male presents to [facility] UC c/o SOB reaching 5/10 in severity. As per triage, "c/o difficulty breathing for 3 days with coughing, headache, chills and fever. Repeat BP 159/109". According to the patient, he has been experiencing SOB since Sunday. He noted that he has COPD, however, since time of onset, it has been getting worse. He is unsure if it is his COPD acting up. Additional symptoms include low-grade fever (measured 100 F), cough, and headache. He stated that he does have a nebulizer and medication (which he has been taking). Denies any trouble with kidneys or anyone being sick at home. PMHx COPD and cirrhosis, denies DM. 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 Patient request note for work. Patient refuses CXR. Allergic to penicillin. - History of Current Complaint Chief Complaint: UCRespiratory Stated Complaint: SHORTNESS OF BREATH Time Seen by Provider: 06/26/18 18:03 Hx Obtained From: Patient Onset/Duration: Sudden Onset, Lasting Days, Still Present, Worse Since Timing: Constant Current Severity: Moderate - 5/10 Dyspnea At: Rest Aggrevating Factors: Nothing Alleviating Factors: Nothing Associated Signs & Symptoms: Positive: Cough (Nonproductive), Fever - Low-grade - Allergy/Home Medications Allergies/Adverse Reactions: Allergies Allergy/AdvReac Type Severity Reaction Status Date / Time Penicillins Allergy Unknown Verified 06/26/18 17:51 Reaction Details PMH/Surg Hx/FS Hx/Imm Hx - Additional Past Medical History Additional PMH: POSITIVE: Cirrhosis Endocrine History: Diabetes - NEGATIVE Respiratory History: COPD - Surgical History Surgical History: Yes Surgery Procedure, Year, and Place: torn meniscus 97 right knee - Family History Known Family History: Positive: Hypertension - Social History Alcohol Use: None Alcohol Amount: former EtOH abuse Substance Use Type: None Smoking Status (MU): Heavy Every Day Tobacco Smoker Type: Cigarettes Amount Used/How Often: 1ppd Length of Time of Smoking/Using Tobacco: 1 ppd 35+ years Have You Smoked in the Last Year: Yes Household Exposure Type: Cigarettes - Immunization History Most Recent Influenza Vaccination: none Most Recent Pneumonia Vaccination: 07/08/15 Vaccination Up to Date: Yes Review of Systems Constitutional: Fever - Low grade Skin: Negative Eyes: Negative ENT: Negative Respiratory: Shortness Of Breath, Cough Cardiovascular: Negative Gastrointestinal: Negative Genitourinary: Negative Motor: Negative Neurovascular: Negative Musculoskeletal: Negative Neurological: Headache Psychological: Negative Is Patient Immunocompromised?: No All Other Systems Reviewed And Are Negative: Yes Physical Exam - Summary Physical Exam Summary: Appearance: Well appearing, no pain distress Skin: warm, dry, reflects adequate perfusion Head/face: normal Eyes: EOMI, MICKY ENT: Bilateral TM normal, clear mucous in the back of pharynx, normal Neck: supple, non-tender Respiratory: breath sounds present, diffuse wheezing without any rales or rhonchi, no respiratory distress Cardiovascular: RRR, pulses symmetrical Abdomen: non-tender, soft Bowel Sounds: present Musculoskeletal: normal, strength/ROM intact Neuro: normal, sensory motor intact, A&Ox3 Triage Information Reviewed: Yes Vital Signs: Initial Vital Signs Temp 98.5 F 06/26/18 17:48 Pulse 81 06/26/18 17:48 Resp 24 06/26/18 17:48 BP 164/105 06/26/18 17:48 Pulse Ox 97 06/26/18 17:48 Vital Signs Reviewed: Yes Re-Evaluation - Re-Evaluation First Eval Change: Improved - Improved wheezing with breathing treatment Shortness of Breath Dx - Course Course Of Treatment: Patient with COPD who continues to smoke and now has diffuse wheezing. He is out of his albuterol, Combivent. He does have nebulizers at home. He was given a breathing treatment here and started on steroids. We will continue steroids, Levaquin antibiotic, nebulizers every 4 hours until well. He was offered an x-ray and declined. Work note through the end of the week. Patient was encouraged to cut back or quit smoking. - Differential Dx/Diagnosis Differential Diagnosis/HQI/PQRI: Bronchitis, COPD Exacerbation, Pneumonia Provider Diagnoses: COPD exacerbation. elevated blood pressure. Tobacco abuse Discharge - Sign-Out/Discharge Documenting (check all that apply): Patient Departure - DISCHARGE All imaging exams completed and their final reports reviewed: No Studies - Discharge Plan Condition: Improved Disposition: HOME Prescriptions: Albuterol HFA INHALER* [Ventolin HFA Inhaler*] 1 puff INH Q6H PRN #1 box PRN Reason: Wheezing Albuterol/Ipratropium RESP(NF) [Combivent Respimat (NF)] 1 aer IN QID #1 box Levofloxacin TAB* [Levaquin TAB*] 750 mg PO DAILY #5 tab predniSONE TAB* [Deltasone TAB*] 50 mg PO DAILY #4 tab Patient Education Materials: COPD (Chronic Obstructive Pulmonary Disease) (ED) , Hypertension (ED) Forms: *Work Release Referrals: Rebecca Adame MD [Primary Care Provider] - Additional Instructions: Your blood pressure was elevated. Have your doctor recheck it within one week. Use nebulizer every 4 hours until well. Return with fever, increased difficulty breathing, worse, new symptoms or other concerns. - Billing Disposition and Condition Condition: IMPROVED Disposition: Home - Attestation Statements Document Initiated by Parisa: Yes Documenting Scribe: Akbar Alston Provider For Whom Parisa is Documenting (Include Credential): Christian Gomez MD Scribe Attestation: Akbar Blackman, scribed for Christian Gomez MD on 06/26/18 at 1856. Scribe Documentation Reviewed: Yes Provider Attestation: The documentation as recorded by the Akbar villareal accurately reflects the service I personally performed and the decisions made by , Christian Gomez MD
== END 2018-06-26 18:49 | disposition home or self-care (01) ==
LOC: UCEAST 17:39
DX: J44.1 Chronic obstructive pulmonary disease with (acute) exacerbation (principal); R03.0 Elevated blood-pressure reading, without diagnosis of hypertension; Z88.0 Allergy status to penicillin; F17.210 Nicotine dependence, cigarettes, uncomplicated
CPT/HCPCS: 99213; A9270-GY; G0463; J7512

== ENCOUNTER 2018-08-07 12:47 | Emergency (ER) | payer BC ==
[2018-08-07 13:04] VITALS: BP 118/77
--- NOTE | 2018-08-07 13:35 | UC ---
Respiratory Complaint HPI - HPI Summary HPI Summary: 3-4 days of overall malaise, fatigue, subjective fever, chills, headache, cough and congestion. Complains of some loose stools but none today. Is using his albuterol nebulizer with good effect. - History of Current Complaint Chief Complaint: UCGeneralIllness Stated Complaint: HEADACHE, COUGH Time Seen by Provider: 08/07/18 13:10 Hx Obtained From: Patient Onset/Duration: Gradual Onset, Lasting Days, Still Present Timing: Constant Severity Initially: Moderate Severity Currently: Moderate Pain Intensity: 6 Pain Scale Used: 0-10 Numeric Character: Cough: Nonproductive Aggravating Factors: Nothing Alleviating Factors: Nothing Associated Signs And Symptoms: Positive: Fever - SUBJECTIVE, Wheezing, URI, Nasal Congestion. Negative: Dyspnea - Allergies/Home Medications Allergies/Adverse Reactions: Allergies Allergy/AdvReac Type Severity Reaction Status Date / Time Penicillins Allergy Unknown Verified 08/07/18 13:07 Reaction Details PMH/Surg Hx/FS Hx/Imm Hx Cardiovascular History: Hypertension Respiratory History: COPD - Surgical History Surgical History: Yes Surgery Procedure, Year, and Place: torn meniscus 97 right knee - Family History Known Family History: Positive: Hypertension - Social History Alcohol Use: None Alcohol Amount: former EtOH abuse Substance Use Type: None Smoking Status (MU): Heavy Every Day Tobacco Smoker Type: Cigarettes Amount Used/How Often: 1ppd Length of Time of Smoking/Using Tobacco: 1 ppd 35+ years Have You Smoked in the Last Year: Yes Household Exposure Type: Cigarettes - Immunization History Most Recent Influenza Vaccination: none Most Recent Pneumonia Vaccination: 07/08/15 Vaccination Up to Date: Yes Review of Systems Constitutional: Fever, Fatigue ENT: Nasal Discharge Respiratory: Cough Cardiovascular: Negative Gastrointestinal: Negative Neurological: Headache All Other Systems Reviewed And Are Negative: Yes Physical Exam Triage Information Reviewed: Yes Appearance: No Pain Distress, Well-Nourished, Ill-Appearing - MILD - APPEARS FATIGUED Vital Signs: Initial Vital Signs Temp 99.4 F 08/07/18 12:59 Pulse 87 08/07/18 12:59 Resp 16 08/07/18 12:59 BP 118/77 08/07/18 12:59 Pulse Ox 97 08/07/18 12:59 Vital Signs Reviewed: Yes Eyes: Positive: Conjunctiva Clear ENT: Positive: Hearing grossly normal, Pharynx normal, TMs normal Neck: Positive: Supple, Nontender, No Lymphadenopathy Respiratory: Positive: No respiratory distress, No accessory muscle use, Wheezing - DIFFUSE MILD END EXP WHEEZE Cardiovascular Exam: Normal Abdomen Description: Positive: Soft Musculoskeletal: Positive: No Edema Neurological: Positive: Alert Psychological: Positive: Age Appropriate Behavior Skin: Negative: rashes UC Diagnostic Evaluation - Laboratory O2 Sat by Pulse Oximetry: 97 Respiratory Course/Dx - Differential Dx/Diagnosis Provider Diagnoses: ACUTE BRONCHITIS Discharge - Sign-Out/Discharge Documenting (check all that apply): Patient Departure All imaging exams completed and their final reports reviewed: No Studies - Discharge Plan Condition: Stable Disposition: HOME Prescriptions: predniSONE TAB* [Deltasone TAB*] 50 mg PO DAILY #5 tab Patient Education Materials: Acute Bronchitis (ED) Forms: *Work Release Referrals: Rebecac Adame MD [Primary Care Provider] - If Needed Additional Instructions: YOUR SYMPTOMS ARE LIKELY VIRALLY MEDIATED AND SHOULD RESOLVE ON THEIR OWN WITH TIME. NO INDICATION FOR ANTIBIOTICS AT PRESENT. REST, HYDRATE, OTC MEDS NEEDED. WILL TREAT WITH PREDNISONE TO HELP WITH AIRWAY INFLAMMATION. CONTINUE YOUR ALBUTEROL PRESCRIBED. SEEK FOLLOW-UP IF YOU ARE NOT IMPROVING OVER THE NEXT 1-2 WEEKS. - Billing Disposition and Condition Condition: STABLE Disposition: Home
== END 2018-08-07 13:41 | disposition home or self-care (01) ==
LOC: UCEAST 12:47
DX: J20.9 Acute bronchitis, unspecified (principal); Z88.0 Allergy status to penicillin; F17.210 Nicotine dependence, cigarettes, uncomplicated
CPT/HCPCS: 99212; G0463

== ENCOUNTER 2018-09-04 18:49 | Emergency (ER) | payer BC ==
--- NOTE | 2018-09-04 19:52 | UC ---
Respiratory Complaint HPI - HPI Summary HPI Summary: 52 y/o male presents to the urgent care c/o has COPD thiss week runny nose with cough and headache low fever, right ear has crackles and fluid. needs work note as well - History of Current Complaint Chief Complaint: UCGeneralIllness Stated Complaint: COUGH,FEVER Time Seen by Provider: 09/04/18 19:52 Hx Obtained From: Patient Onset/Duration: Gradual Onset, Lasting Days - 3 days, Still Present, Worse Since - yesterday Timing: Intermittent Episodes Severity Initially: Mild Severity Currently: Moderate Pain Intensity: 5 - sore thraot and body aches Pain Scale Used: 0-10 Numeric Character: Cough: Productive, Sputum Description: - yellowish Aggravating Factors: Recumbent Position Alleviating Factors: Bronchodilator, OTC Meds Associated Signs And Symptoms: Positive: Wheezing, URI, Nasal Congestion, Sinus Discomfort. Negative: Fever, Chills - Risk Factors Pulmonary Embolism Risk Factors: Negative Cardiac Risk Factors: Hypertension Pseudomonas Risk Factors: Negative Tuberculosis Risk Factors: Negative - Allergies/Home Medications Allergies/Adverse Reactions: Allergies Allergy/AdvReac Type Severity Reaction Status Date / Time Penicillins Allergy Unknown Verified 09/04/18 19:13 Reaction Details PMH/Surg Hx/FS Hx/Imm Hx Previously Healthy: Yes Cardiovascular History: Hypertension Respiratory History: COPD - Surgical History Surgical History: Yes Surgery Procedure, Year, and Place: torn meniscus 97 right knee - Family History Known Family History: Positive: Hypertension - Social History Occupation: Employed Full-time Lives: With Family Alcohol Use: Rare Alcohol Amount: former EtOH abuse Substance Use Type: None Smoking Status (MU): Heavy Every Day Tobacco Smoker Type: Cigarettes Amount Used/How Often: 1ppd Length of Time of Smoking/Using Tobacco: 1 ppd 35+ years Have You Smoked in the Last Year: Yes Household Exposure Type: Cigarettes - Immunization History Most Recent Influenza Vaccination: none Most Recent Pneumonia Vaccination: 07/08/15 Vaccination Up to Date: Yes Review of Systems All Other Systems Reviewed And Are Negative: Yes Constitutional: Positive: Negative Skin: Positive: Negative Eyes: Positive: Negative ENT: Positive: Sore Throat, Nasal Discharge, Sinus Congestion Respiratory: Positive: Cough - productive, Other - wheezing Cardiovascular: Positive: Negative Gastrointestinal: Positive: Negative Genitourinary: Positive: Negative Motor: Positive: Negative Neurovascular: Positive: Negative Musculoskeletal: Positive: Negative Neurological: Positive: Headache Psychological: Positive: Negative Is Patient Immunocompromised?: No Physical Exam - Summary Physical Exam Summary: Vital Signs Reviewed: Yes General: well developed, well nourished male sitting in the examining table w/o any apparent distress Eyes: Positive: Conjunctiva Clear - PERRLA, EOMI, fundi grossly normal ENT: Positive: Normal ENT inspection, Hearing grossly normal, Pharynx normal, Nasal congestion - edematous and erythematous nasal mucosa, Nasal drainage - yellowish drainage, TMs normal. Negative: Tonsillar swelling, Tonsillar exudate Neck: Positive: Supple, Nontender, No Lymphadenopathy Respiratory: no orthopnea or dyspnea. Able to speak in full sentences, no retractions or accessory muscle use, no tripod position, stridor, or head bobbing. Positive breath sounds bilaterally. diffuse scattered wheezing and rhonchi on b/L lungs, no crackles or rales. Cardiovascular: Positive: RRR, No Murmur, Pulses Normal, Brisk Capillary Refill Abdomen Description: Positive: Nontender, No Organomegaly, Soft. Negative: CVA Tenderness (R), CVA Tenderness (L) Bowel Sounds: Positive: Present Musculoskeletal Exam: Normal Musculoskeletal: Positive: Strength Intact, ROM Intact, No Edema Neurological Exam: Normal Psychological Exam: Normal Skin Exam: Normal Triage Information Reviewed: Yes Vital Signs: Initial Vital Signs Temp 97.6 F 09/04/18 19:08 Pulse 65 09/04/18 19:08 Resp 20 09/04/18 19:08 BP 143/81 09/04/18 19:08 Pulse Ox 98 09/04/18 19:08 Diagnostic Evaluation - Laboratory O2 Sat by Pulse Oximetry: 98 Respiratory Course/Dx - Differential Dx/Diagnosis Differential Diagnosis/HQI/PQRI: Aspiration, Asthma, Bronchitis, Exacerbation Of COPD, Lower Resp Infection, Sinusitis, Other - pneumonia Provider Diagnoses: 1- COPD exacerbation due to bronchitis. 2- Wheeaing Discharge - Sign-Out/Discharge Documenting (check all that apply): Patient Departure - d/c home All imaging exams completed and their final reports reviewed: No Studies - Discharge Plan Condition: Stable Disposition: HOME Prescriptions: Albuterol 2.5MG/3ML (0.083%)* [Ventolin 2.5 MG/3 ML NEB.ESHA*] 2.5 mg INH QID PRN #1 neb.esha PRN Reason: Wheezing DOXYcycline CAP(*) [DOXYcycline 100MG CAP(*)] 100 mg PO BID #19 cap predniSONE TAB* [Deltasone 20 MG TAB*] 20 mg PO DAILY #8 tab Patient Education Materials: COPD (Chronic Obstructive Pulmonary Disease) (ED) , Wheezing (ED), Low-Sodium Diet (ED) Forms: *Work Release Referrals: Rebecca Adame MD [Primary Care Provider] - Additional Instructions: 1- Take Doxycycline PO as directed. First dose given at the clinic tonight. Influenza A&B: negative 2-Take Prednisone PO taper dose as directed starting tomorrow. First loading dose given today. 2-Use the Duoneb nebulizer treatment to alleviate SOB, and wheezing as directed . Increase fluid intake, rest and eat well. 3- If symptoms do not improve or worsen or your develop SOB with fever and severe wheezing please go immediately to the ER further evaluation and treatment. 4- F/u with your PCP in 2-3 days for further management on your COPD 5-Your BP is elevated today. please decrease salt in your diet, monitor BP and if it continues to be elevated please f/u with your PCP for further management - Billing Disposition and Condition Condition: STABLE Disposition: Home
[2018-09-04] MEDS: predniSONE TAB* 20 MG PO ONE (20:30)
[2018-09-04] MEDS: Albuterol/Ipratropium NEB.SOL* Albuterol 2.5 MG/Ipratropium 0.5 MG 3 ML INH ONE (20:30)
[2018-09-04] MEDS: DOXYcycline CAP(*) 100 MG PO ONE (20:59)
[2018-09-04 21:13] VITALS: BP 138/82
== END 2018-09-04 21:13 | disposition home or self-care (01) ==
LOC: UCEAST 18:49
DX: R06.2 Wheezing (principal); J44.1 Chronic obstructive pulmonary disease with (acute) exacerbation; F17.210 Nicotine dependence, cigarettes, uncomplicated; I10 Essential (primary) hypertension
CPT/HCPCS: 99213; A9270-GY; G0463; J7512

== ENCOUNTER 2018-10-05 15:52 | Emergency (ER) | payer BC ==
[2018-10-05 16:06] VITALS: BP 118/82
--- NOTE | 2018-10-05 16:26 | UC ---
Respiratory Complaint HPI - HPI Summary HPI Summary: For several days has been feeling very tight and wheezy, temperatures up to 100.5. Feels like his typical COPD flare symptoms. Has been out of work all week , needs a note for his sick time. - History of Current Complaint Chief Complaint: UCRespiratory Stated Complaint: SOB Time Seen by Provider: 10/05/18 16:04 Hx Obtained From: Patient Onset/Duration: Gradual Onset, Lasting Days Timing: Constant Severity Initially: Mild Severity Currently: Moderate Pain Intensity: 0 Character: Cough: Productive Aggravating Factors: Exertion, Deep Breaths, Recumbent Position Alleviating Factors: Bronchodilator, Upright Position Associated Signs And Symptoms: Positive: Dyspnea, Wheezing, URI, Nasal Congestion - Allergies/Home Medications Allergies/Adverse Reactions: Allergies Allergy/AdvReac Type Severity Reaction Status Date / Time Penicillins Allergy Unknown Verified 10/05/18 16:00 Reaction Details Home Medications: Home Medications Albuterol/Ipratropium RESP(NF) [Combivent Respimat (NF)] 1 aer IN DAILY [History Confirmed 10/05/18] PMH/Surg Hx/FS Hx/Imm Hx Cardiovascular History: Hypertension Respiratory History: COPD, Asthma - Surgical History Surgical History: Yes Surgery Procedure, Year, and Place: torn meniscus 97 right knee - Family History Known Family History: Positive: Hypertension - Social History Occupation: Employed Part-time Alcohol Use: Rare Alcohol Amount: former EtOH abuse Substance Use Type: None Smoking Status (MU): Heavy Every Day Tobacco Smoker Type: Cigarettes Amount Used/How Often: 1ppd Length of Time of Smoking/Using Tobacco: 1 ppd 35+ years Have You Smoked in the Last Year: Yes Household Exposure Type: Cigarettes - Immunization History Most Recent Influenza Vaccination: none Most Recent Pneumonia Vaccination: 07/08/15 Vaccination Up to Date: Yes Review of Systems All Other Systems Reviewed And Are Negative: Yes Constitutional: Positive: Negative Skin: Positive: Negative Eyes: Positive: Negative ENT: Positive: Negative Respiratory: Positive: Shortness Of Breath, Cough Cardiovascular: Positive: Negative Gastrointestinal: Positive: Negative Genitourinary: Positive: Negative Motor: Positive: Negative Neurovascular: Positive: Negative Musculoskeletal: Positive: Negative Neurological: Positive: Negative Psychological: Positive: Negative Is Patient Immunocompromised?: No Physical Exam Triage Information Reviewed: Yes Appearance: Ill-Appearing - acutely ill, Obese Vital Signs: Initial Vital Signs Temp 97.4 F 10/05/18 15:55 Pulse 74 10/05/18 15:55 Resp 24 10/05/18 15:55 BP 118/82 10/05/18 15:55 Pulse Ox 96 10/05/18 15:55 Vital Signs Reviewed: Yes Eye Exam: Normal Eyes: Positive: Conjunctiva Clear ENT: Positive: Hearing grossly normal, Pharynx normal, TMs normal Dental Exam: Other - poor dentition Neck exam: Normal Respiratory Exam: Other - Discussed nebulizer treatment in clinic, pt declined and said he would rather do it at home Respiratory: Positive: Decreased breath sounds, Accessory muscle use, Wheezing Cardiovascular Exam: Normal Cardiovascular: Positive: RRR, No Murmur Neurological Exam: Normal Neurological: Positive: Alert Psychological Exam: Normal Skin Exam: Normal UC Diagnostic Evaluation - Laboratory O2 Sat by Pulse Oximetry: 96 Respiratory Course/Dx - Differential Dx/Diagnosis Provider Diagnosis: COPD with exacerbation Discharge - Sign-Out/Discharge Documenting (check all that apply): Patient Departure All imaging exams completed and their final reports reviewed: Yes - Discharge Plan Condition: Stable Disposition: HOME Prescriptions: Albuterol 2.5MG/3ML (0.083%)* [Ventolin 2.5 MG/3 ML NEB.ESHA*] 2.5 mg INH QID PRN #60 neb.esha PRN Reason: Wheezing Azithromycin TAB* [Zithromax TAB*] 250 mg PO SEE INSTRUCTIONS #6 tab predniSONE TAB* [Deltasone TAB*] 50 mg PO DAILY #5 tab Patient Education Materials: COPD (Chronic Obstructive Pulmonary Disease) (ED) Forms: *Work Release Referrals: Rebecca Adame MD [Primary Care Provider] - 4 Days Additional Instructions: Please come back or go to the emergency department if you are not starting to feel some relief within 48 hours. - Billing Disposition and Condition Condition: STABLE Disposition: Home
== END 2018-10-05 16:28 | disposition home or self-care (01) ==
LOC: UCEAST 15:52
DX: J44.1 Chronic obstructive pulmonary disease with (acute) exacerbation (principal); I10 Essential (primary) hypertension; J45.909 Unspecified asthma, uncomplicated; F17.210 Nicotine dependence, cigarettes, uncomplicated; Z88.0 Allergy status to penicillin
CPT/HCPCS: 99212; G0463

== ENCOUNTER 2018-10-28 15:08 | Emergency (ER) | payer BC ==
[2018-10-28 15:20] VITALS: BP 146/90
--- NOTE | 2018-10-28 15:22 | UC ---
Respiratory Complaint HPI - HPI Summary HPI Summary: 53 yo male presents with wheezing and cough. He mentions that over the last 3 days he has had 6-7 episodes a day of diarrhea, but today feels better and it seems to be "slowing". He has an extensive hx of COPD and he feels this is his "usual" exacerbation. Denies fever, chills, chest pain, abdominal pain, n/v. - History of Current Complaint Chief Complaint: UCGeneralIllness Stated Complaint: COPD Time Seen by Provider: 10/28/18 15:22 Hx Obtained From: Patient Onset/Duration: Gradual Onset Severity Initially: Moderate Severity Currently: Moderate Pain Intensity: 5 Pain Scale Used: 0-10 Numeric Character: Cough: Nonproductive - Allergies/Home Medications Allergies/Adverse Reactions: Allergies Allergy/AdvReac Type Severity Reaction Status Date / Time Penicillins Allergy Unknown Verified 10/28/18 15:21 Reaction Details PMH/Surg Hx/FS Hx/Imm Hx - Additional Past Medical History Additional PMH: COPD Cardiovascular History: Hypertension - Surgical History Surgical History: Yes Surgery Procedure, Year, and Place: torn meniscus 97 right knee - Family History Known Family History: Positive: Hypertension - Social History Lives: With Family Alcohol Use: Rare Alcohol Amount: former EtOH abuse Substance Use Type: None Smoking Status (MU): Light Every Day Tobacco Smoker Type: Cigarettes Amount Used/How Often: 1ppd Length of Time of Smoking/Using Tobacco: 1 ppd 35+ years Have You Smoked in the Last Year: Yes Household Exposure Type: Cigarettes - Immunization History Most Recent Influenza Vaccination: none Most Recent Pneumonia Vaccination: 07/08/15 Vaccination Up to Date: Yes Review of Systems All Other Systems Reviewed And Are Negative: Yes Constitutional: Positive: Negative Skin: Positive: Negative Eyes: Positive: Negative ENT: Positive: Negative Respiratory: Positive: Cough Cardiovascular: Positive: Negative Gastrointestinal: Positive: Diarrhea Genitourinary: Positive: Negative Motor: Positive: Negative Neurovascular: Positive: Negative Neurological: Positive: Negative Psychological: Positive: Negative Physical Exam - Summary Physical Exam Summary: GENERAL: NAD. WDWN. No pain distress. SKIN: No rashes, sores, lesions, or open wounds. HEENT: Head: AT/NC Eyes: Conjunctiva clear without inflammation or discharge. Ears: Hearing grossly normal. TMs intact, no bulging, erythema, or edema. Nose: Nasal mucosa pink and moist. NTTP maxillary and frontal sinus. Throat: Posterior oropharynx without exudates, erythema, or tonsillar enlargement. Uvula midline. NECK: Supple. Nontender. No lymphadenopathy. CHEST: Mild wheezing throughout. No r/r. No accessory muscle use. Breathing comfortably and in no distress. CV: RRR. Without m/r/g. Pulses intact. Cap refill <2seconds ABDOMEN: Soft. NTTP. No distention or guarding. No CVA tenderness. Bowel sounds present NEURO: Alert. PSYCH: Age appropriate behavior. Triage Information Reviewed: Yes Vital Signs: Initial Vital Signs Temp 97.0 F 10/28/18 15:16 Pulse 87 10/28/18 15:16 Resp 20 10/28/18 15:16 BP 146/90 10/28/18 15:16 Pulse Ox 96 10/28/18 15:16 Vital Signs Reviewed: Yes Diagnostic Evaluation - Laboratory O2 Sat by Pulse Oximetry: 96 Respiratory Course/Dx - Course Course Of Treatment: COPD exacerbation. He has a nebulizer at home and does not need a refill of his albuterol solution. - Differential Dx/Diagnosis Provider Diagnosis: COPD exacerbation Discharge - Sign-Out/Discharge Documenting (check all that apply): Patient Departure All imaging exams completed and their final reports reviewed: No Studies - Discharge Plan Condition: Stable Disposition: HOME Prescriptions: predniSONE TAB* [Deltasone TAB*] 50 mg PO DAILY #5 tab Patient Education Materials: COPD (Chronic Obstructive Pulmonary Disease) (DC) Forms: *Work Release Referrals: Rebecca Adame MD [Primary Care Provider] - Additional Instructions: If you develop a fever, shortness of breath, chest pain, new or worsening symptoms - please call your PCP or go to the ED. Your blood pressure was high at todays visit. Please see your primary provider within 4 weeks for recheck and re-evaluation. - Billing Disposition and Condition Condition: STABLE Disposition: Home
== END 2018-10-28 15:37 | disposition home or self-care (01) ==
LOC: UCEAST 15:08
DX: J44.1 Chronic obstructive pulmonary disease with (acute) exacerbation (principal); I10 Essential (primary) hypertension; F17.210 Nicotine dependence, cigarettes, uncomplicated; Z88.0 Allergy status to penicillin
CPT/HCPCS: 99212; G0463

== ENCOUNTER 2018-11-19 18:01 | Emergency (ER) | payer BC ==
[2018-11-19 18:11] VITALS: BP 177/105
--- NOTE | 2018-11-19 18:19 | UC ---
Respiratory Complaint HPI - HPI Summary HPI Summary: Patient presents to urgent care reporting that his COPD is acting up today. Patient with a history of chronic COPD for which she is on Advair and has albuterol MDI neb for breakthrough. Patient states his symptoms seem worse with full. Patient states this morning he felt very short of breath and wheezy. Patient states he uses Advair. Patient used his nebulizer once in his MDI once. Patient states he did not call his PCP and conditioner sooner because he was caring for his 78-year-old mother. Patient states he does have a cough is productive of clear sputum. Patient reports a low-grade temperature 100 even last night. No fevers today. Patient states he does have nausea and diarrhea but this frequently COPD acts up. Patient states he was most recently seen approximately 3 weeks ago when he was given abx and prednisone. Pt states saw his f/u after this visit. Pt did not call PCP today. Pt did get flu vaccine. Pt's medications reviewed this visit. - History of Current Complaint Chief Complaint: UCRespiratory Stated Complaint: COPD SOB Time Seen by Provider: 11/19/18 18:11 Hx Obtained From: Patient, Medical Records Onset/Duration: Sudden Onset Timing: Intermittent Episodes Severity Initially: Mild Severity Currently: None Pain Intensity: 0 Pain Scale Used: 0-10 Numeric Character: Cough: Productive - clear - Allergies/Home Medications Allergies/Adverse Reactions: Allergies Allergy/AdvReac Type Severity Reaction Status Date / Time Penicillins Allergy Unknown Verified 11/19/18 18:11 Reaction Details PMH/Surg Hx/FS Hx/Imm Hx Cardiovascular History: Hypertension Respiratory History: COPD, Bronchitis - Surgical History Surgical History: Yes Surgery Procedure, Year, and Place: torn meniscus 97 right knee - Family History Known Family History: Positive: Hypertension - Social History 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 Lives: With Family - mother Alcohol Use: Rare Alcohol Amount: former EtOH abuse Substance Use Type: None Smoking Status (MU): Light Every Day Tobacco Smoker Type: Cigarettes Amount Used/How Often: 1ppd Length of Time of Smoking/Using Tobacco: 1 ppd 35+ years Have You Smoked in the Last Year: Yes Household Exposure Type: Cigarettes - Immunization History Most Recent Influenza Vaccination: none Most Recent Pneumonia Vaccination: 07/08/15 Vaccination Up to Date: Yes Review of Systems All Other Systems Reviewed And Are Negative: Yes Skin: Positive: Negative Respiratory: Positive: Cough, Other - wheeze sputum Is Patient Immunocompromised?: No Physical Exam - Summary Physical Exam Summary: Vital Signs Reviewed: Yes A+Ox3, no distress, speaking full easy sentences without retraction Eyes: Conjunctiva Clear, MICKY. EOM intact and full ENT: Hearing grossly normal TM x 2 clear, mmoist, uvula midline, no exudate, no erythema Neck: Positive: Supple Respiratory: Positive: No respiratory distress, No accessory muscle use, speaking full easy sentences. Pt with scattered end exp wheeze no cough no retractions Cardiovascular: RRR nl s1, s2 no m/r CBT <2 sec abd soft + BS nt/nd no guarding, no distension Musculoskeletal Exam: BAZAN x 4 without difficulty Strength Intact, ROM Intact Neurological: Positive: Alert, + sensation throughout Psychological: Positive: Normal Response To Family Skin: Positive: no rash, no ecchymosis Triage Information Reviewed: Yes Vital Signs: Initial Vital Signs Temp 99.2 F 11/19/18 18:08 Pulse 81 11/19/18 18:08 Resp 18 11/19/18 18:08 BP 177/105 11/19/18 18:08 Pulse Ox 96 11/19/18 18:08 Diagnostic Evaluation - Laboratory O2 Sat by Pulse Oximetry: 96 Re-Evaluation - Re-Evaluation First Eval Change: Improved - Aeration improved following neb Will give pred taper recommend f/u with PCP Respiratory Course/Dx - Course Course Of Treatment: Patient presents to urgent care reporting he feels a COPD is acting up. Patient states uses Advair 1 DuoNeb. Patient states that improved as the day went on. Patient denies chest pain. Patient states feeling pretty good at the moment. Patient states does have some nausea and diarrhea which happens on a COPD extra. 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 Patient does smoke one pack of cigarettes per day. On exam vital signs are stable. Patient with slight expiratory wheeze. Patient speaking full sinuses without distress. We'll check influenza and given DuoNeb and reassessed. Anticipate the patient prednisone. We'll likely hold antibiotics at this time as patient was just on antibiotics, doesn't have fever , and his sputum is clear. Patient also requesting note for work today will write for today. - Differential Dx/Diagnosis Provider Diagnosis: COPD exacerbation Discharge - Sign-Out/Discharge Documenting (check all that apply): Patient Departure All imaging exams completed and their final reports reviewed: No Studies - Discharge Plan Condition: Stable Disposition: HOME Patient Education Materials: COPD (Chronic Obstructive Pulmonary Disease) (ED) , Hepatitis B Immune Globulin (By injection) Referrals: Rebecca Adame MD [Primary Care Provider] - Additional Instructions: - Use your albuterol nebulizer or puffer - 2 puffs every 4 hours for the next 2 days - then as needed - Take prednisone as prescribed until gone - Stay well hydrated - avoid excess caffeine and all alcohol - Eat regular, healthy meals - Humidify the air in the room where you sleep - boil water, run a hot steam shower, vaporizer, cups of water by heat register - okay to take over the counter decongestant and cough medication -Contact your doctor to arrange a follow-up appointment this week. Call your doctor or go to the emergency department if your symptoms persist or worsen Your blood pressure was markedly elevated today - it is recommended you follow- up with your primary regarding your blood pressure and your breathing. - Billing Disposition and Condition Condition: STABLE Disposition: Home
[2018-11-19] MEDS ORDERED: Albuterol/Ipratropium NEB.SOL* Albuterol 2.5 MG/Ipratropium 0.5 MG 3 ML INH ONE (18:28)
[2018-11-19] MEDS ORDERED: Albuterol/Ipratropium NEB.SOL* Albuterol 2.5 MG/Ipratropium 0.5 MG 3 ML ONE (18:30)
[2018-11-19 18:48] LABS: Influenza A Molecular NEGATIVE (Negative); Influenza B Molecular NEGATIVE (Negative)
== END 2018-11-19 19:00 | disposition home or self-care (01) ==
LOC: UCEAST 18:01
DX: J44.1 Chronic obstructive pulmonary disease with (acute) exacerbation (principal); I10 Essential (primary) hypertension; F17.210 Nicotine dependence, cigarettes, uncomplicated; Z88.0 Allergy status to penicillin
CPT/HCPCS: 99212; A9270-GY; G0463

== ENCOUNTER 2018-12-25 18:09 | Emergency (ER) | payer BC ==
[2018-12-25 18:32] VITALS: BP 154/94
--- NOTE | 2018-12-25 19:54 | ED ---
GI/ HPI - HPI Summary HPI Summary: 53 yo WM p/w diarrhea x5-6 per day and n/v 3x per day x 3 days, mother with same sx. Took immodium but still having profuse diarrhea. 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 until this resolves - History of Current Complaint Chief Complaint: UCGI Time Seen by Provider: 12/25/18 19:13 Stated Complaint: DIARRHEA Hx Obtained From: Patient Onset/Duration: Started Days Ago Timing: Constant, Intermittent Severity: Moderate Current Severity: Moderate Pain Intensity: 4 - Allergy/Home Medications Allergies/Adverse Reactions: Allergies Allergy/AdvReac Type Severity Reaction Status Date / Time Penicillins Allergy Unknown Verified 12/25/18 18:32 Reaction Details PMH/Surg Hx/FS Hx/Imm Hx Previously Healthy: Yes Endocrine/Hematology History: Denies: Hx Diabetes, Hx Thyroid Disease Cardiovascular History: Reports: Hx Hypertension - ON MEDICATION Denies: Hx Pacemaker/ICD Respiratory History: Reports: Hx Chronic Obstructive Pulmonary Disease (COPD), Hx Sleep Apnea - evaluation for 03/2014, Other Respiratory Problems/Disorders - smoker Denies: Hx Asthma GI History: Denies: Hx Ulcer Musculoskeletal History: Reports: Hx Orthopedic Injury - 1997 meniscus repair Sensory History: Reports: Hx Contacts or Glasses Denies: Hx Hearing Aid Opthamlomology History: Reports: Hx Contacts or Glasses Psychiatric History: Reports: Hx Panic Disorder, Other Psychiatric Issues/ Disorders - hx ETOH, quit drinking 1989 - Surgical History Surgery Procedure, Year, and Place: torn meniscus 97 right knee Infectious Disease History: No Infectious Disease History: Reports: Hx Shingles - as a child age 14 Denies: Hx Clostridium Difficile, Hx Hepatitis, Hx Human Immunodeficiency Virus (HIV), Hx of Known/Suspected MRSA, Hx Tuberculosis, Hx Known/Suspected VRE , Hx Known/Suspected VRSA, History Other Infectious Disease, Traveled Outside the [place] in Last 30 Days - Family History Known Family History: Positive: Hypertension - Social History Alcohol Use: Rare Alcohol Amount: former EtOH abuse Substance Use Type: Reports: None Smoking Status (MU): Heavy Every Day Tobacco Smoker Type: Cigarettes Amount Used/How Often: 1ppd Length of Time of Smoking/Using Tobacco: 1 ppd 35+ years Have You Smoked in the Last Year: Yes Review of Systems Constitutional: Negative Eyes: Negative ENT: Negative Cardiovascular: Negative Respiratory: Negative Gastrointestinal: Other Positive: Abdominal Pain, Vomiting, Diarrhea, Nausea Musculoskeletal: Negative Skin: Negative Neurological: Negative Psychological: Normal All Other Systems Reviewed And Are Negative: Yes Physical Exam - Summary Physical Exam Summary: Vital Signs Reviewed: Yes Skin: Positive: Warm Head/Face: Positive: Normal Head/Face Inspection Eyes: Positive: Normal ENT: Positive: Normal ENT inspection Neck: Positive: Supple Respiratory/Lung Sounds: Positive: Clear to Auscultation Cardiovascular: Positive: Normal, RRR, S1, S2 Abdomen Description: Positive: NT/ND, mild hyperactive BS Musculoskeletal: Positive: Normal Neurological: Positive: Normal Psychiatric: Positive: Normal, Affect/Mood Appropriate Vital Signs On Initial Exam: Initial Vitals Temp Pulse Resp BP Pulse Ox 37.5 C 76 16 154/94 98 12/25/18 18:29 12/25/18 18:29 12/25/18 18:29 12/25/18 18:29 12/25/18 18:29 Diagnostics - Vital Signs Vital Signs Temp Pulse Resp BP Pulse Ox 12/25/18 18:29 37.5 C 76 16 154/94 98 - Laboratory Lab Statement: Any lab studies that have been ordered have been reviewed, and results considered in the medical decision making process. GIGU Course/Dx - Course Assessment/Plan: Acute viral gastroenteritis- sx tx with meds, cont supportive care - Diagnoses Provider Diagnoses: Acute gastroenteritis, Diarrhea, Nausea & vomiting Discharge - Sign-Out/Discharge Documenting (check all that apply): Patient Departure All imaging exams completed and their final reports reviewed: Yes - Discharge Plan Condition: Stable Disposition: HOME Prescriptions: Diphenoxylat/Atrop 2.5-0.025M* [Lomotil TAB*] 2 tab PO BID PRN 5 Days #10 tab MDD 2 PRN Reason: Diarrhea Ondansetron ODT TAB* [Zofran 4 MG Odt TAB*] 4 mg PO Q6H PRN 5 Days #20 tab.odt PRN Reason: Nausea Patient Education Materials: Acute Nausea and Vomiting (ED), Acute Diarrhea (ED ) Forms: *Work Release - Billing Disposition and Condition Condition: STABLE Disposition: Home
== END 2018-12-25 20:07 | disposition home or self-care (01) ==
LOC: UCEAST 18:09
DX: K52.9 Noninfective gastroenteritis and colitis, unspecified (principal); R19.7 Diarrhea, unspecified; R11.2 Nausea with vomiting, unspecified; F17.210 Nicotine dependence, cigarettes, uncomplicated; J44.9 Chronic obstructive pulmonary disease, unspecified; R11.0 Nausea; Z88.0 Allergy status to penicillin
CPT/HCPCS: 99212; G0463

== ENCOUNTER 2019-02-10 13:59 | Emergency (ER) | payer BC ==
[2019-02-10 14:10] VITALS: BP 138/96
--- NOTE | 2019-02-10 14:45 | UC ---
Respiratory Complaint HPI - HPI Summary HPI Summary: 53 yo male presents requesting medication refills and complains that his "COPD is acting up". He tells me that he had Dr. Adame that was rxing his COPD medications, but pt was not able to attend all of his appointments and was discharged from that practice. He is here requesting refills of his COPD and HTN medications. He has been out of these the last 3-4 days. In addition to this , he has been having increased wheezing and dry coughing for the last few days - thinks this is due to not having his inhalers. Denies fever, chills, sinus symptoms, SOB, chest pain, abdominal pain, n/v. He is still smoking daily. - History of Current Complaint Chief Complaint: UCRespiratory Stated Complaint: SOB COPD Time Seen by Provider: 02/10/19 14:45 Hx Obtained From: Patient Onset/Duration: Gradual Onset Severity Initially: Mild Severity Currently: Mild Pain Intensity: 2 Pain Scale Used: 0-10 Numeric Character: Cough: Nonproductive - Allergies/Home Medications Allergies/Adverse Reactions: Allergies Allergy/AdvReac Type Severity Reaction Status Date / Time Penicillins Allergy Unknown Verified 02/10/19 14:10 Reaction Details PMH/Surg Hx/FS Hx/Imm Hx Cardiovascular History: Hypertension Respiratory History: COPD - Surgical History Surgical History: Yes Surgery Procedure, Year, and Place: torn meniscus 97 right knee - Family History Known Family History: Positive: Hypertension - Social History Occupation: Employed Full-time Lives: With Family Alcohol Use: Rare Alcohol Amount: former EtOH abuse Substance Use Type: None Smoking Status (MU): Heavy Every Day Tobacco Smoker Type: Cigarettes Amount Used/How Often: 1ppd Length of Time of Smoking/Using Tobacco: 1 ppd 35+ years Have You Smoked in the Last Year: Yes Household Exposure Type: Cigarettes - Immunization History Most Recent Influenza Vaccination: none Most Recent Pneumonia Vaccination: 07/08/15 Vaccination Up to Date: Yes Review of Systems All Other Systems Reviewed And Are Negative: Yes Constitutional: Positive: Negative Skin: Positive: Negative Eyes: Positive: Negative ENT: Positive: Negative Respiratory: Positive: Cough Cardiovascular: Positive: Negative Gastrointestinal: Positive: Negative Neurovascular: Positive: Negative Neurological: Positive: Negative Psychological: Positive: Negative Physical Exam - Summary Physical Exam Summary: GENERAL: NAD. WDWN. No pain distress. SKIN: No rashes, sores, lesions, or open wounds. HEENT: Head: AT/NC Eyes: Conjunctiva clear without inflammation or discharge. Ears: Hearing grossly normal. TMs intact, no bulging, erythema, or edema. Nose: Nasal mucosa pink and moist. NTTP maxillary and frontal sinus. Throat: Posterior oropharynx without exudates, erythema, or tonsillar enlargement. Uvula midline. NECK: Supple. Nontender. No lymphadenopathy. CHEST: Mild wheezing throughout. No r/r. No accessory muscle use. Breathing comfortably and in no distress. CV: RRR. Without m/r/g. Pulses intact. Cap refill <2seconds NEURO: Alert. PSYCH: Age appropriate behavior. Triage Information Reviewed: Yes Vital Signs: Initial Vital Signs Temp 98.4 F 02/10/19 14:07 Pulse 72 02/10/19 14:07 Resp 18 02/10/19 14:07 BP 138/96 02/10/19 14:07 Pulse Ox 98 02/10/19 14:07 Vital Signs Reviewed: Yes Respiratory Course/Dx - Course Course Of Treatment: Will refill his HTN and COPD medications and start him with prednisone and zpak for COPD exacerbation. We had a long discussion about following up with a new PCP and he is in the process of looking for a new one. Will give him the information to referral line with [facility]. - Differential Dx/Diagnosis Provider Diagnosis: COPD exacerbation Discharge - Sign-Out/Discharge Documenting (check all that apply): Patient Departure All imaging exams completed and their final reports reviewed: No Studies - Discharge Plan Condition: Stable Disposition: HOME Prescriptions: Albuterol 2.5MG/3ML (0.083%)* [Ventolin 2.5 MG/3 ML NEB.ESHA*] 2.5 mg INH QID PRN #60 neb.esha PRN Reason: Wheezing Albuterol HFA INHALER* [Ventolin HFA Inhaler*] 1 puff INH Q6H PRN #1 unit PRN Reason: Wheezing Albuterol/Ipratropium RESP(NF) [Combivent Respimat (NF)] 1 aer IN BID #1 mdi Amlodipine Besylate [Norvasc] 10 mg PO DAILY #90 tablet Azithromycin TAB* [Zithromax TAB (Z-KOSTAS) 250 mg #6 tabs] 2 tab PO .TODAY, THEN 1 DAILY #1 kostas Chlorthalidone 25 mg PO DAILY #90 tab Fluticasone-Salmeterol 500-50* [Advair Diskus 500-50*] 1 puff INH BID #1 diskus Losartan Potassium 100 mg PO DAILY #90 tablet predniSONE TAB* [Deltasone 20 MG TAB*] 40 mg PO DAILY #10 tab Patient Education Materials: COPD (Chronic Obstructive Pulmonary Disease) (DC) Forms: *Work Release Referrals: No Primary Care Phys,NOPCP [Primary Care Provider] - Additional Instructions: If you develop a fever, shortness of breath, chest pain, new or worsening symptoms - please call your PCP or go to the ED. Your blood pressure was high at todays visit. Please see your primary provider within 4 weeks for recheck and re-evaluation. 1) Please schedule an appointment with a primary doctor as soon as possible - Billing Disposition and Condition Condition: STABLE Disposition: Home
== END 2019-02-10 15:11 | disposition home or self-care (01) ==
LOC: UCEAST 13:59
DX: J44.1 Chronic obstructive pulmonary disease with (acute) exacerbation (principal); I10 Essential (primary) hypertension; Z76.0 Encounter for issue of repeat prescription; Z88.0 Allergy status to penicillin; F17.210 Nicotine dependence, cigarettes, uncomplicated
CPT/HCPCS: 99212; G0463

== ENCOUNTER 2019-02-13 14:24 | Emergency (ER) | payer BC ==
[2019-02-13 14:53] VITALS: BP 128/82
--- NOTE | 2019-02-13 15:17 | ED ---
Respiratory - HPI Summary HPI Summary: 53-year-old male presents with continuation of bronchitis today. He is a smoker. He states his cough has been improving. He states he is unable to go back to work and is requesting a work note. He has been using his nebulizer. he states had diarrhea starting today. No blood in stool. No dark tarry stool. is on azithromycin. No nausea vomiting. no abdominal pain. no foul smelling stool. - History of Current Complaint Chief Complaint: UCRespiratory Stated Complaint: COPD Time Seen by Provider: 02/13/19 15:07 Pain Intensity: 0 - Allergy/Home Medications Allergies/Adverse Reactions: Allergies Allergy/AdvReac Type Severity Reaction Status Date / Time Penicillins Allergy Unknown Verified 02/13/19 14:53 Reaction Details PMH/Surg Hx/FS Hx/Imm Hx Endocrine/Hematology History: Denies: Hx Diabetes, Hx Thyroid Disease Cardiovascular History: Reports: Hx Hypertension - ON MEDICATION Denies: Hx Pacemaker/ICD Respiratory History: Reports: Hx Chronic Obstructive Pulmonary Disease (COPD), Hx Sleep Apnea - evaluation for 03/2014, Other Respiratory Problems/Disorders - smoker Denies: Hx Asthma GI History: Denies: Hx Ulcer Musculoskeletal History: Reports: Hx Orthopedic Injury - 1997 meniscus repair Sensory History: Reports: Hx Contacts or Glasses Denies: Hx Hearing Aid Opthamlomology History: Reports: Hx Contacts or Glasses Psychiatric History: Reports: Hx Panic Disorder, Other Psychiatric Issues/ Disorders - hx ETOH, quit drinking 1989 - Surgical History Surgery Procedure, Year, and Place: torn meniscus 97 right knee Infectious Disease History: No Infectious Disease History: Reports: Hx Shingles - as a child age 14 Denies: Hx Clostridium Difficile, Hx Hepatitis, Hx Human Immunodeficiency Virus (HIV), Hx of Known/Suspected MRSA, Hx Tuberculosis, Hx Known/Suspected VRE , Hx Known/Suspected VRSA, History Other Infectious Disease, Traveled Outside the [place] in Last 30 Days - Family History Known Family History: Positive: Hypertension - Social History Alcohol Use: Rare Alcohol Amount: former EtOH abuse Substance Use Type: Reports: None Smoking Status (MU): Heavy Every Day Tobacco Smoker Type: Cigarettes Amount Used/How Often: 1ppd Length of Time of Smoking/Using Tobacco: 1 ppd 35+ years Have You Smoked in the Last Year: Yes Review of Systems Negative: Fever Negative: Chest Pain Positive: Shortness Of Breath, Cough Negative: Abdominal Pain All Other Systems Reviewed And Are Negative: Yes Physical Exam Triage Information Reviewed: Yes Vital Signs On Initial Exam: Initial Vitals Temp Pulse Resp BP Pulse Ox 99.5 F 74 12 128/82 98 02/13/19 14:48 02/13/19 14:48 02/13/19 14:48 02/13/19 14:48 02/13/19 14:48 Vital Signs Reviewed: Yes Appearance: Positive: Well-Appearing Skin: Positive: Warm, Dry Head/Face: Positive: Normal Head/Face Inspection Eyes: Positive: Normal, EOMI, MICKY, Conjunctiva Clear ENT: Positive: Normal ENT inspection, Pharynx normal, TMs normal Respiratory/Lung Sounds: Positive: Decreased Breath Sounds, Wheezes Cardiovascular: Positive: Normal, RRR Abdomen Description: Positive: Nontender, Soft Bowel Sounds: Positive: Present Musculoskeletal: Positive: Normal Neurological: Positive: Normal Psychiatric: Positive: Normal Diagnostics - Vital Signs Vital Signs Temp Pulse Resp BP Pulse Ox 02/13/19 14:48 99.5 F 74 12 128/82 98 - Laboratory Lab Statement: Any lab studies that have been ordered have been reviewed, and results considered in the medical decision making process. Disposition - Course Course Of Treatment: 53-year-old male presents with continuation of bronchitis today. He is a smoker. He states his cough has been improving. He states he is unable to go back to work and is requesting a work note. He has been using his nebulizer. he states had diarrhea starting today. No blood in stool. No dark tarry stool. is on azithromycin. No nausea vomiting. no abdominal pain. no foul smelling stool. on exam nontender abd. lungs wheezing heard but patient declined breathing treatment and xray. gave work note. Discuss addding probiotic with antibiotic. Told if the diarrhea continues to return for stool culture. Patient requesting a refill gabapentin. Told to follow up with [facility]. Patient understands agrees with plan. - Differential Dx - Cardiopulmonary Differential Diagnoses - Cardiopulmonary: Bronchitis, Influenza, Lower Resp Infection - Diagnoses Provider Diagnoses: Bronchitis, COPD (chronic obstructive pulmonary disease) Discharge - Sign-Out/Discharge Documenting (check all that apply): Patient Departure All imaging exams completed and their final reports reviewed: No Studies - Discharge Plan Condition: Good Disposition: HOME Prescriptions: Gabapentin CAP(*) [Neurontin 300 CAP(*)] 300 mg PO TID #90 cap Patient Education Materials: Acute Bronchitis (ED) Forms: *Work Release Referrals: [facility] [Outside] Additional Instructions: [facility] up with [facility] Continue medications as already prescribed Return to UC if develop any new or worsening symptoms - Billing Disposition and Condition Condition: GOOD Disposition: Home - Attestation Statements Provider Attestation: I did not see or disposition this patient. I was available for consult.
== END 2019-02-13 15:33 | disposition home or self-care (01) ==
LOC: UCEAST 14:24
DX: J44.9 Chronic obstructive pulmonary disease, unspecified (principal); I10 Essential (primary) hypertension; Z88.0 Allergy status to penicillin; F17.210 Nicotine dependence, cigarettes, uncomplicated
CPT/HCPCS: 99212; G0463

== ENCOUNTER 2019-02-24 16:59 | Emergency (ER) | payer BC ==
[2019-02-24 17:33] VITALS: BP 122/74
--- NOTE | 2019-02-24 17:41 | UC ---
Respiratory Complaint HPI - HPI Summary HPI Summary: 53 yo male presents with nausea, vomiting, and diarrhea since yesterday. He also has mild increased SOB that he attributes to his ongoing issues with COPD. He last vomited yesterday, but loose stools x4 yesterday and today. He was able to eat breakfast and lunch today without issue. Denies fever, chills, abdominal pain, chest pain. - History of Current Complaint Chief Complaint: UCRespiratory Stated Complaint: NAUSEA, VOMITING, AND DIARRHEA Time Seen by Provider: 02/24/19 17:41 Hx Obtained From: Patient Onset/Duration: Sudden Onset Severity Initially: Mild Severity Currently: Mild Pain Intensity: 2 Pain Scale Used: 0-10 Numeric - Allergies/Home Medications Allergies/Adverse Reactions: Allergies Allergy/AdvReac Type Severity Reaction Status Date / Time Penicillins Allergy Unknown Verified 02/24/19 17:33 Reaction Details Home Medications: Home Medications Gabapentin CAP(*) [Neurontin 100 mg CAP(*)] 3 cap PO TID 02/24/19 [History Confirmed 02/24/19] PMH/Surg Hx/FS Hx/Imm Hx Cardiovascular History: Hypertension Respiratory History: COPD, Asthma - Surgical History Surgical History: Yes Surgery Procedure, Year, and Place: torn meniscus 97 right knee - Family History Known Family History: Positive: Hypertension - Social History Lives: With Family Alcohol Use: None Alcohol Amount: former EtOH abuse Substance Use Type: None Smoking Status (MU): Current Every Day Smoker Type: Cigarettes Amount Used/How Often: 1ppd Length of Time of Smoking/Using Tobacco: 1 ppd 35+ years Have You Smoked in the Last Year: Yes Household Exposure Type: Cigarettes - Immunization History Most Recent Influenza Vaccination: none Most Recent Pneumonia Vaccination: 07/08/15 Vaccination Up to Date: Yes Review of Systems All Other Systems Reviewed And Are Negative: Yes Constitutional: Positive: Negative Skin: Positive: Negative Respiratory: Positive: Shortness Of Breath, Cough Cardiovascular: Positive: Negative Gastrointestinal: Positive: Vomiting, Diarrhea Genitourinary: Positive: Negative Neurovascular: Positive: Negative Neurological: Positive: Negative Psychological: Positive: Negative Physical Exam - Summary Physical Exam Summary: GENERAL: NAD. WDWN. No pain distress. SKIN: No rashes, sores, lesions, or open wounds. NECK: Supple. Nontender. No lymphadenopathy. CHEST: Mild wheezing throughout. No r/r. No accessory muscle use. Breathing comfortably and in no distress. CV: RRR. Without m/r/g. Pulses intact. Cap refill <2seconds ABDOMEN: Soft. NTTP. No distention or guarding. No organomegaly. No CVA tenderness. Bowel sounds present NEURO: Alert. PSYCH: Age appropriate behavior. Triage Information Reviewed: Yes Vital Signs: Initial Vital Signs Temp 99.8 F 02/24/19 17:28 Pulse 86 02/24/19 17:28 Resp 20 02/24/19 17:28 BP 122/74 02/24/19 17:28 Pulse Ox 95 02/24/19 17:28 Vital Signs Reviewed: Yes Respiratory Course/Dx - Course Course Of Treatment: Suspect viral gastroenteritis. In the clinic he was given zofran and a duoneb treatment for his COPD exacerbation. He experienced good relief of his SOB and nausea. He is requesting a note for work for today, which I will provide for him. Encouraged to call pulmonology to schedule an appointment regarding his continued issues with COPD. - Differential Dx/Diagnosis Provider Diagnosis: Gastroenteritis, COPD (chronic obstructive pulmonary disease) Discharge - Sign-Out/Discharge Documenting (check all that apply): Patient Departure All imaging exams completed and their final reports reviewed: No Studies - Discharge Plan Condition: Stable Disposition: HOME Patient Education Materials: Gastroenteritis (DC), COPD (Chronic Obstructive Pulmonary Disease) (DC) Forms: *Work Release Referrals: No Primary Care Phys,NOPCP [Primary Care Provider] - Linda Archer MD [Medical Doctor] - As Soon As Possible Additional Instructions: If you develop a fever, shortness of breath, chest pain, new or worsening symptoms - please call your PCP or go to the ED immediately. Please call pulmonolgy at the number below to schedule an appointment as soon as possible for further treatment of your COPD - Billing Disposition and Condition Condition: STABLE Disposition: Home
[2019-02-24] MEDS ORDERED: Albuterol/Ipratropium NEB.SOL* Albuterol 2.5 MG/Ipratropium 0.5 MG 3 ML INH ONE (17:52)
[2019-02-24] MEDS ORDERED: Ondansetron ODT TAB* 4 MG SL ONE (17:52)
== END 2019-02-24 18:50 | disposition home or self-care (01) ==
LOC: UCEAST 16:59
DX: K52.9 Noninfective gastroenteritis and colitis, unspecified (principal); J44.9 Chronic obstructive pulmonary disease, unspecified; I10 Essential (primary) hypertension; Z88.0 Allergy status to penicillin; F17.210 Nicotine dependence, cigarettes, uncomplicated
CPT/HCPCS: 99212; A9270-GY; G0463